=== PATIENT | male | born 1970 | race Caucasian/White ===

== ENCOUNTER → 2019-07-01 15:24 | Outpatient (CLI) | payer BC, SELFPAY ==
--- NOTE | ~2019-07-01 | CT_ITS ---
EXAMINATION: CT abdomen pelvis wo/w con EXAM DATE: 07/01/2019 16:16 INDICATION: Right lower quadrant pain for one month. TECHNIQUE: Spiral CT of the abdomen and pelvis was performed without and then with intravenous inject ion of 100 mL Omnipaque 350. Axial, coronal and sagittal images were reviewed. The dose-length pro duct (DLP) for this examination was 1608.91 mGy-cm. The exposure was tailored according to patient s ize (auto mA exposure control), and iterative reconstruction (ASIR) was used as additional dose reduc tion technique. There is no prior study for comparison. FINDINGS: The liver, spleen, adrenal glands and pancreas are unremarkable. Gallbladder is unremarkab le. No biliary obstruction. Portal and splenic veins are patent. There is no nephrolithiasis. Kidne ys enhance symmetrically. There is no hydronephrosis. The prostate is unremarkable. The bladder i s unremarkable. Scattered pericecal lymph nodes, measuring up to 1.1 x 1.6 cm. Differential diagnosi s includes mesenteric adenitis, metastatic disease, mesenteric carcinoid. No definite cecal mass iden tified but small masses could be missed by CT. The appendix is normal. The stomach and small bowel are unremarkable. There is expected amount of colonic stool. No free i ntraperitoneal gas. The heart is normal in size. There are no pericardial or pleural effusions. S cattered lung granulomas. There are no osteoblastic or osteolytic lesions identified. IMPRESSION: Mild pericecal lymphadenopathy, differential diagnosis including mesenteric adenitis, met astatic disease, carcinoid tumor. Clinical correlation. Consider one-month follow-up and if this pers ists further workup. Reviewed, dictated and finalized at location B. 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 Clinical correlation. C onsider one-month follow-up and if this persists further workup.
[2019-07-01 15:57] LABS: Blood Urea Nitrogen 21 mg/dL (8-26); Estimated Glomerular Filt Rate > 60
== END ==
PROVIDERS: PCP Family Medicine; Visit Provider Family Medicine
DX: R59.1 Generalized enlarged lymph nodes (principal)
CPT/HCPCS: 74178; Q9967

== ENCOUNTER → 2019-08-01 15:49 | Outpatient (CLI) | payer BC, SELFPAY ==
--- NOTE | ~2019-08-01 | CT_ITS ---
EXAMINATION: CT abdomen pelvis w con DATE: 08/01/2019 16:18 INDICATION: Right lower quadrant abdominal pain. TECHNIQUE: Computed tomography (CT) of the abdomen and pelvis was performed with 100 mm Omnipaque 350 intravenous contrast. Automated exposure control and iterative reconstruction technique were employe d. The dose-length product was 873.55 mGy-cm. COMPARISON: CT abdomen and pelvis 07/01/2019 FINDINGS: Calcified pulmonary nodules and calcified hilar and mediastinal lymph nodes are consistent with old granulomatous disease. No pleural effusion. The heart size is normal. No pericardial effusio n. The liver, gallbladder, spleen, pancreas, adrenal glands, and left kidney are normal. There is a 5 mm cyst in right kidney. The appendix measures 8 mm in diameter without change. No wall thickening o r surrounding fat stranding to suggest inflammation. Again seen is an increased number of normal-size d ileocolic lymph nodes, likely reactive. There are no pathologically enlarged lymph nodes. There is no free intraperitoneal fluid. There is mild thoracolumbar spondylosis. IMPRESSION: 1. Mild ileocolic lymphadenopathy, likely reactive. Reviewed, dictated and finalized at location A.
== END ==
PROVIDERS: PCP Family Medicine; Visit Provider Surgery
DX: R10.31 Right lower quadrant pain (principal); R59.0 Localized enlarged lymph nodes
CPT/HCPCS: 74177; Q9967

== ENCOUNTER 2020-11-17 01:55 | Emergency (ER) | payer BC, SELFPAY ==
--- NOTE | ~2020-11-17 | XR_ITS ---
EXAMINATION: XR chest 2V DATE: 11/17/2020 02:54 INDICATION: Palpitations. TECHNIQUE: Frontal and lateral views of the chest were obtained. COMPARISON: Chest 2 views 07/05/2007, CT abdomen and pelvis 08/01/2019 FINDINGS: Calcified pulmonary nodules and calcified hilar and mediastinal lymph nodes are consistent with old granulomatous disease. No pleural effusion or pneumothorax. The heart size is normal. IMPRESSION: 1. No acute cardiopulmonary disease. Reviewed, dictated and finalized at location A.
[2020-11-17 01:59] VITALS: BP 150/96; PULSE 88; RESP 20; TEMP 36.8; O2SAT 99
[2020-11-17 02:05] VITALS: BP 151/92; PULSE 78; RESP 16; O2SAT 98
--- NOTE | 2020-11-17 02:12 | ECG_ITS ---
Measurements Intervals [place] Rate: 80 P: 29 VT: 158 QRS: -10 QRSD: 121 T: 29 QT: 353 QTc: 409 Interpretive Statements SINUS RHYTHM INCOMPLETE RIGHT BUNDLE BRANCH BLOCK MINIMAL Q WAVES- INFERIOR LEADS BORDERLINE ECG Electronically Signed On 11-17-2020 6:03:05 CDT by Mike Banks D.O.
[2020-11-17 03:32] LABS: Eosinophils Absolute Auto 0.1 K/mm3 (0-0.3); Eosinophils Percent Auto 2.1 % (0-4.4); Hematocrit 47.4 % (42.0-52.0); Hemoglobin 15.9 g/dL (14.0-18.0); Immature Granulocyte Absolute 0.03 K/mm3 (0.00-0.031); Immature Granulocyte Percent A 0.6 % (0-0.5); Lymphocytes Absolute Auto 0.91 K/mm3 (0.9-3.2); Lymphocytes Percent Auto 18.9 % (18.3-44.2); Mean Corpuscular HGB Conc 33.5 g/dl (32-36); Mean Corpuscular Hemoglobin 29.2 pg (26-34); Mean Corpuscular Volume 87.1 fl (80-100); Monocytes Absolute Auto 0.4 K/mm3 (0.1-0.6); Monocytes Percent Auto 9.1 % (2.6-8.5); Neutrophils Absolute Auto 3.3 K/mm3 (1.3-6.7); Neutrophils Percent Auto 69.3 % (45.5-73.1); Platelet Count Result 181 k/mm3 (150-375); Red Blood Count 5.44 M/mm3 (4.6-6.20); Red Cell Distribution Width 12.5 % (11.5-14.5); White Blood Count 4.8 K/mm3 (4.5-10.0)
[2020-11-17 03:42] LABS: INR 0.9
[2020-11-17 03:44] LABS: Anion Gap 8 mmol/L (8-16); Blood Urea Nitrogen 16 mg/dL (9-20); Calcium 9.4 mg/dL (8.4-10.2); Carbon Dioxide 28 mmol/L (22-30); Chloride 104 mmol/L (98-107); Estimated CRCL calculation 88 ml/min; Estimated Glomerular Filt Rate > 60; Glucose 106 mg/dL (75-110); Potassium 4.1 mmol/L (3.4-5.0); Sodium 140 mmol/L (137-145)
[2020-11-17 03:45] LABS: Partial Thromboplastin Time 28.5 SECONDS (22.3-36.8)
[2020-11-17 03:55] LABS: NT Pro B Type Natriuretic Pept 25 pg/mL (5-100); Troponin I < 0.012 ng/mL (0.000-0.034)
--- NOTE | 2020-11-17 04:05 | ED.ARRPALP ---
HPI - Arrhythmia/Palpitations General Chief Complaint: Arrhythmia/Palpitations Stated Complaint: Dizzy, high HR Time Seen by Provider: 11/17/20 03:56 Source: patient and RN notes reviewed Mode of arrival: ambulatory Limitations: no limitations History of Present Illness HPI narrative: This is a 50 year old male who presents for evaluation of palpitations. He states on Monday night he woke up after sleeping a couple hours with a sensation of palpitations. He reports tonight he was having trouble getting comfort and falling asleep . He also states he was feeling anxious as well. His states they are dealing with alot of stress. He states he was slightly lightheaded when he arrived to ER but he feels fine now. HE denies chest pain, sob, nausea, vomiting, sinus symptoms, numbness, tingling or headache. 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 HEAD: Normocephalic, atraumatic EYES: PERRLA and EOMI, conjunctiva clear without discharge EARS: TM's clear bilaterally without erythema or dullness NOSE: Nares clear, no rhinorrhea or epistaxis THROAT:Mucous membranes moist, Oropharynx normal without erythema, exudate, peritonsillar swelling or fluctuance NECK: Supple, without lymphadenopathy or mass RESPIRATORY: No respiratory distress, Airway patent, Respirations non-labored, Clear to auscultation without rales, rhonchi or wheeze HEART: Regular rate and rhythm. No murmur heard. Normal peripheral pulses. ABDOMEN: Soft, nontender, nondistended, normal active bowel sounds. No masses. No rebound or guarding, No organomegaly. EXTREMITIES: No edema, normal strength with full range of motion. SKIN: Warm, dry, normal color without rash NEURO: Alert and oriented x3. CN 2-12 grossly intact. No focal deficits. PSYCH: Normal mood and affect. Course Reevaluation(s) Reevaluation #1: I Discussed with patient that labs are unremarkable. He will follow up with PCP if symptoms continue and he will get evaluation for palpitations. Not orthostatic. No chest pain or sob. No arrhythmia at this time Date: 11/17/20 Time: 04:17 Vital Signs Vital signs: Vital Signs Temperature 98.3 F 11/17/20 01:59 Pulse Rate 88 11/17/20 01:59 Respiratory Rate 20 11/17/20 01:59 Blood Pressure 150/96 H 11/17/20 01:59 Pulse Oximetry 99 11/17/20 01:59 Temperature 98.3 F 11/17/20 01:59 Pulse Rate 74 11/17/20 04:32 Respiratory Rate 16 11/17/20 02:05 Blood Pressure 131/87 11/17/20 04:32 Pulse Oximetry 96 11/17/20 04:32 MDM - Arrhythmia/Palpitations Lab Data Attestation: I reviewed the patient's lab results. Result diagrams: 11/17/20 03:20 11/17/20 0
[2020-11-17 04:07] VITALS: BP 131/85; PULSE 64
[2020-11-17 04:09] VITALS: BP 135/91; PULSE 68
[2020-11-17 04:10] VITALS: BP 132/88; PULSE 75
[2020-11-17 04:32] VITALS: BP 131/87; PULSE 74; O2SAT 96
== END 2020-11-17 04:32 | disposition home or self-care (01) ==
PROVIDERS: Emergency Provider General Practice; PCP Family Medicine
DX: R00.2 Palpitations (principal)
CPT/HCPCS: 36415; 71046; 80048; 83735; 83880; 84484; 85025; 85610; 85730; 93005; 99284

== ENCOUNTER → 2023-04-12 15:32 | Outpatient (CLI) | payer BC, SELFPAY ==
--- NOTE | ~2023-04-12 | XR_ITS ---
XR cervical spine 4-5V INDICATION: Neck pain TECHNIQUE: 5 views of the cervical spine. FINDINGS: No prior studies for comparison. The cervical spine is visualized to the cervicothoracic junction. There is no prevertebral soft tiss ue swelling, listhesis, or loss of vertebral body height. Intervertebral disc spaces are normal. Th e osseous central canal is patent. No displaced cervical spine fractures are identified. No signific ant alteration of alignment with flexion/extension. IMPRESSION: 1. No acute osseous abnormality of the cervical spine. Reviewed, dictated and finalized at location B. IFIED PROSTHETIST
== END ==
PROVIDERS: PCP Family Medicine; Visit Provider Family Medicine
DX: M54.2 Cervicalgia (principal)
CPT/HCPCS: 72050

== ENCOUNTER 2023-06-21 15:15 | Outpatient (RCR) | payer BC, SELFPAY ==
--- NOTE | 2023-05-03 15:07 | PTOPEVAL1 ---
Assessment and note entered by Victorino Escobar Evaluation Information Assessment Status Evaluation Diagnosis cervicalgia Onset 02/01/23 Subjective Information Pt. reports that he developed neck pain about 3 months ago. He describes pain in the center of the neck. 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 He states that he also notices the pain in the evening with sitting. He reports that he will get occasional pain with attempting to turn his head to the right. He reports that he can have pain at night and can disrupt his sleep. He reports that he will take occasional Asprin for pain. He states that he is able to complete all IADL despite pain. he has had xray, but no significant findings. He reports that his goal is to decrease his pain. Reported Pain Level Pain Score 1: Self Report Assessment PT Clinical Summary Pt. is a 52 year old male who enters the clinic with neck pain. He presents with defictis in postural awareness, pain and deficits in cervical spine ROM on this date. Continued skilled PT is indicated in order to improve these areas to allow the pt. to achieve improved comfort with all IADL 's. Plan of Care Interventions Electrical Stimulation,Hot Pack/Cold Pack,Manual Therapy,Neuro Re-education,Therapeutic Activities, Therapeutic Exercise Treatment Frequency and 1x/week x 4 visits Duration These treatments will address the objective and functional deficits as defined above. The patient will be advanced safely and appropriately in order for the patient to progress towards his/her prior level of function. Additional exercises will be introduced and as well as a comprehensive home exercise program upon discharge, if needed, ?to ensure carryover of functional gains achieved in the clinic. This treatment plan has been reviewed and agreement upon by the patient.
--- NOTE | 2023-05-03 15:07 | OPREHPOC ---
Outpatient Therapy Plan of Care This is a Multidisciplinary Plan of Care that may contain components documented by all disciplines (PT, OT, and ST.) PT Problem 1 PT Problem #1 Knowledge Deficit PT Goal 1 Goal Pt. will be independent with a HEP addressing postural awareness and mobility. Target Visit 2 PT Problem 2 PT Problem #2 Pain PT Goal 1 Goal Pt. will report pain levels at 1/10 at worst in a 2 week period. Target Visit 4 PT Problem 3 PT Problem #3 Impaired Range of Motion PT Goal 1 Goal Pt. will demonstrate 75 degrees or greater of bilateral c-spine rotation active ROM. Target Visit 4 PT Problem 4 PT Problem #4 Impaired Functional Mobil PT Goal 1 Goal Pt. will present with 10% improvement or more with the NDI. Target Visit 4
--- NOTE | 2023-05-31 12:29 | PCPTNOTE ---
Queenie Mckenna cancelled his scheduled appointment for this date due to illness. Victorino Escobar, MPT
--- NOTE | 2023-06-21 15:41 | PTOPDC ---
Assessment and note entered by Mattie Oliva, PT Discharge Information Assessment Status Discharge Diagnosis cervicalgia Onset 02/01/23 Subjective Information am 99% better, have been using a traction- thing he found on [employer]; is doing sitting or lying down ; have been careful at work and not looking down at the morales when operating it and when looking at phone, hold it up more; been doing the exercises Reported Pain Level Pain Score Self Report Additional Pain Score Comments pain range in the past week, 0-1/10; feel a little something in neck about 2x/week, but last few seconds only; decrease pain: cervical traction with pump up device he purchased discussed the home unit and doing in supine position with head supported and good alignment; or reclined in chair with supported head; reinforced use of heat/ ice PRN if neck pain increases Assessment PT Clinical Summary Karey has received 4 PT sessions, from May 03 to today. Compared to the initial eval: pain has decreased at worst from 4 to 1/10; active cervical rotation to R and L range increased and no longer painful; improved posture of neck and shoulders with correction of his work and home positions for cervical stability; indep with HEP and education completed. Self assessment Neck Disability index from 14% to 0% limitation in activity level. The goals were achieved. Discharge PT services, to continue with his home exercises. Plan of Care PT Services Indicated No
== END 2023-06-22 15:38 | disposition home or self-care (01) ==
LOC: ANHPT 15:15
PROVIDERS: PCP Family Medicine; Visit Provider Family Medicine
DX: M54.2 Cervicalgia (principal)
CPT/HCPCS: 97012; 97014; 97110; 97140; 97161; 97530; G0283

== ENCOUNTER 2024-07-10 14:52 | Emergency (ER) | payer BC, SELFPAY ==
--- NOTE | ~2024-07-10 | XR_ITS ---
EXAMINATION: XR chest 2V DATE: 07/10/2024 15:40 INDICATION: Chest pain. TECHNIQUE: Frontal and lateral views of the chest were obtained. COMPARISON: Chest 2 views 11/17/2020, CT abdomen and pelvis 08/01/2019 FINDINGS: Calcified pulmonary nodules and calcified hilar and mediastinal lymph nodes are consistent with old granulomatous disease. No pleural effusion or pneumothorax. The heart size is normal. IMPRESSION: 1. No acute cardiopulmonary disease. Reviewed, dictated and finalized at location A. ORICAL MANUSCRIPTS CURATOR
--- NOTE | 2024-07-10 14:54 | ECG_ITS ---
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
[2024-07-10 14:56] VITALS: BP 147/87; PULSE 92; RESP 16; TEMP 37.1; O2SAT 99
[2024-07-10 15:07] VITALS: BP 153/99; PULSE 88; RESP 20; TEMP 36.8; O2SAT 97
[2024-07-10] MEDS: ASPIRIN 81 MG CHEWABLE TABLET 324 MG PO (15:15)
[2024-07-10 15:33] LABS: Basophils Percent Auto 0.1 % (0.2-1.2); Eosinophils Absolute Auto 0.1 K/mm3 (0-0.3); Eosinophils Percent Auto 1.6 % (0-4.4); Hematocrit 45.8 % (42.0-52.0); Immature Granulocyte Absolute 0.02 K/mm3 (0.00-0.031); Immature Granulocyte Percent A 0.2 % (0-0.5); Lymphocytes Absolute Auto 0.92 K/mm3 (0.9-3.2); Lymphocytes Percent Auto 11.4 % (18.3-44.2); Mean Corpuscular HGB Conc 34.9 g/dl (32-36); Mean Corpuscular Hemoglobin 30.1 pg (26-34); Mean Corpuscular Volume 86.3 fl (80-100); Mean Platelet Volume 9.1 fl (7.4-10.4); Monocytes Absolute Auto 0.6 K/mm3 (0.1-0.6); Monocytes Percent Auto 6.8 % (2.6-8.5); Neutrophils Absolute Auto 6.5 K/mm3 (1.3-6.7); Neutrophils Percent Auto 79.9 % (45.5-73.1); Platelet Count Result 211 k/mm3 (150-375); Red Blood Count 5.31 M/mm3 (4.6-6.20); Red Cell Distribution Width 12.5 % (11.5-14.5); White Blood Count 8.1 K/mm3 (4.5-10.0)
[2024-07-10 15:43] LABS: Alanine Aminotransferase 22 U/L (6-50); Albumin Level 4.3 g/dL (3.5-5.1); Alkaline Phosphatase 81 U/L (38-126); Anion Gap 11 mmol/L (4-12); Aspartate Amino Transferase 24 U/L (17-59); Bilirubin,Total 1.4 mg/dL (0.2-1.3); Blood Urea Nitrogen 21 mg/dL (9-20); Calcium 9.3 mg/dL (8.4-10.2); Carbon Dioxide 27 mmol/L (22-30); Chloride 104 mmol/L (98-107); Estimated CRCL calculation 79 ml/min; Estimated Glomerular Filt Rate > 60; Glucose 102 mg/dL (65-110); Lipase 64 U/L (23-300); Potassium 3.9 mmol/L (3.4-5.0); Sodium 142 mmol/L (137-145)
[2024-07-10 15:44] LABS: INR 0.9; Prothrombin Time 12.3 Seconds (11.1-14.7)
[2024-07-10 15:45] LABS: Partial Thromboplastin Time 28.1 Seconds (22.3-36.8)
[2024-07-10 15:55] LABS: Troponin I < 0.012 ng/mL (0.000-0.034)
[2024-07-10 16:13] VITALS: BP 130/80; PULSE 80; RESP 14; O2SAT 97
--- OUTSIDE RECORDS SUMMARY | 2024-07-10 16:41 | XMS_ITS | Patient Health Summary ---
Author Organization [facility] Address [address] [place] [address] Care Team Providers Care Coremaking Supervisor Name Role Phone Roderick Suh MD Primary Care Provider Note from [facility],non-owned Affiliates and Associated Physician Practices is amultiple site organization consisting of ambulatory clinics and hospital sitesin [place], [place], [place] and [place]. This disclosure is being madepursuant to the Care Everywhere program and may not contain all information available regarding this patient. Last updated 18.[facility] Allergies No known active allergies Medications * Be aware that medications may not be up to date on this document. Alwaysverify current medications with the patient. 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 (FLUZONE; FLULAVAL; FLUARIX; AFLURIA QUADRIVALENT; 6MO+), 0.5 ML (IIV4)(Given 04/07/2019) * PNEUMOCOCCAL PPSV23(Given 02/12/2015) Social History Tobacco Use Types Packs/Day Years Used Date Smoking Tobacco: Never Smokeless Tobacco: Never Tobacco Cessation:Counseling Given: Not Answered Alcohol Use Standard Drinks/Week Comments No 0 (1 standard drink = 0.6 oz pur e alcohol) Social, maybe once a month. PHQ-2 Answer Date Recorded Patient Health Questionnaire-2 Score 0 03/21/2024 Sex and Gender Information Value Date Recorded Sex Assigned at Male 03/15/2021 6:37 PM AUTO BODY SHOP MANAGER Gender Identity Male 03/15/2021 6:37 PM AUT[employer] B[employer]OP MANAGER Sexual Orientation Not on file Last Filed Vital Signs Vital Sign Reading Time Taken Comments Blood Pressure 129/87 03/21/2024 3:31 PM AUT[employer] BODY SHOP MANAGER Pulse 84 03/21/2024 3:31 PM AUTO BODY SHOP MANAGER Temperature 36.4 C (97.5 F) 03/21/2024 3:31 PM AUTO BODY SHOP MANAGER Respiratory Rate 20 04/03/2019 3:11 PM AUTO BODY SHOP MANAGER Oxygen Saturation 96% 03/21/2024 3:31 PM AUTO BODY SHOP MANAGER Inhaled Oxygen Concentration - - Weight 100.7 kg (222 lb) 03/21/2024 3:31 PM AUTO BODY SHOP MANAGER Height 185.4 cm (6' 1 ) 03/21/2024 3:31 PM AUTO BODY SHOP MANAGER Body Mass Index 29.29 03/21/2024 3:31 PM AUTO BODY SHOP MANAGER Procedures * COMPLETE PFT W/WO BRONCHODILATOR(Performed 03/21/2024) Performed for Hypogammaglobulinemia (HCC), CVID (common variable immunodeficiency) (HCC) * CBC W AUTO DIFFERENTIAL(Performed 03/14/2024) * COMPREHENSIVE METABOLIC PANEL(Performed 03/14/2024) * IMMUNOGLOBULINS A/E/G/M QUANT(Performed 03/14/2024) * COMPLETE PFT W/WO BRONCHODILATOR(Performed 03/20/2023) * IMMUNOGLOBULINS IGG/IGM/IGA PANEL(Performed 02/15/2023) * CBC W AUTO DIFFERENTIAL(Performed 02/15/2023) * COMPREHENSIVE METABOLIC PANEL(Performed 02/15/2023) * IGM BLOOD(Performed 04/12/2022) Performed for CVID (common variable immunodeficiency) ([facility]) * IGA BLOOD(Performed 04/12/2022) Performed for CVID (common variable immunodeficiency) ([facility]) * IGG BLOOD(Performed 04/12/2022) Performed for CVID (common variable immunodeficiency) ([facility]) * CBC W AUTO DIFFERENTIAL(Performed 03/19/2022) Performed for Hypogammaglobulinemia ([facility]) * IGG BLOOD(Performed 03/19/2022) Performed for Hypogammaglobulinemia ([facility]) * PFT-LAB(Performed 07/27/2021) Performed for CVID (common variable immunodeficiency) ([facility]) * COMPREHENSIVE METABOLIC PANEL(Performed 04/05/2021) Performed for CVID (common variable immunodeficiency) ([facility]) * IMMUNOGLOBULINS IGG/IGM/IGA PANEL(Performed 04/05/2021) Performed for CVID (common variable immunodeficiency) ([facility]) * CBC W AUTO DIFFERENTIAL(Performed 04/05/2021) Performed for CVID (common variable immunodeficiency) ([facility]) * CT ENTEROGRAPHY(Performed 03/27/2020) Performed for Right lower quadrant abdominal pain * CREATININE - POCT INTERFACED(Performed 03/27/2020) * US ABDOMEN LIMITED(Performed 03/27/2020) Performed for RUQ pain * FLOW CYTOMETRY ARLET MEDIUM PANEL(Performed 03/12/2020) Performed for CVID (common variable immunodeficiency) ([facility]) * CBC W AUTO DIFFERENTIAL(Performed 03/12/2020) Performed for CVID (common variable immunodeficiency) ([facility]) * CD4/CD8 ABSOLUTE + RATIO PANEL(Performed 02/14/2020) Performed for Immunodeficiency with predominantly antibody defects ([facility]) * IMMUNOGLOBULINS IGG/IGM/IGA PANEL(Performed 02/14/2020) Performed for Immunodeficiency with predominantly antibody defects ([facility]) * COMPREHENSIVE METABOLIC PANEL(Performed 02/14/2020) Performed for Immunodeficiency with predominantly antibody defects ([facility]) * CBC W AUTO DIFFERENTIAL(Performed 02/14/2020) Performed for Immunodeficiency with predominantly antibody defects (HCC) * CD4/CD8 ABSOLUTE + RATIO PANEL(Performed 08/29/2019) * CD4/CD8 ABSOLUTE + RATIO PANEL(Performed 03/12/2019) * IMMUNOGLOBULINS IGG/IGM/IGA PANEL(Performed 03/12/2019) * CD4/CD8 ABSOLUTE + RATIO PANEL(Performed 03/23/2018) Performed for Hypogammaglobulinemia (HCC) * COMPREHENSIVE METABOLIC PANEL(Performed 03/23/2018) Performed for Hypogammaglobulinemia (HCC) * IMMUNOGLOBULINS IGG/IGM/IGA PANEL(Performed 03/23/2018) Performed for Hypogammaglobulinemia (HCC) * CBC W AUTO DIFFERENTIAL(Performed 03/23/2018) Performed for Hypogammaglobulinemia (HCC) * IGM BLOOD(Performed 08/14/2017) * IGG BLOOD(Performed 08/14/2017) * IGA BLOOD(Performed 08/14/2017) * LYMPHOCYTE SUBSET PANEL 3(Performed 08/14/2017) * IGG SUBCLASSES PANEL(Performed 01/17/2017) * IGA SUBCLASSES(Performed 01/17/2017) * CD4/CD8 + RATIO PANEL BLOOD(Performed 01/17/2017) * IGM BLOOD(Performed 01/17/2017) * COMPREHENSIVE METABOLIC PANEL(Performed 01/17/2017) * CBC W AUTO DIFFERENTIAL(Performed 01/17/2017) * IMMUNOGLOBULINS IGG/IGM/IGA PANEL(Performed 08/08/2016) * CD4/CD8 + RATIO PANEL BLOOD(Performed 08/08/2016) * CBC W AUTO DIFFERENTIAL(Performed 08/08/2016) * PFT-LAB(Performed 03/04/2016) * DIPHTHERIA + TETANUS AB PANEL(Performed 02/12/2016) * COMPREHENSIVE METABOLIC PANEL(Performed 02/12/2016) * CBC W AUTO DIFFERENTIAL(Performed 02/12/2016) * IGM BLOOD(Performed 02/12/2016) * IGG BLOOD(Performed 02/12/2016) * IGA BLOOD(Performed 02/12/2016) * CD4/CD8 + RATIO PANEL BLOOD(Performed 02/12/2016) * CBC W AUTO DIFFERENTIAL(Performed 08/25/2015) * IGM BLOOD(Performed 08/25/2015) * IGG BLOOD(Performed 08/25/2015) * IGA BLOOD(Performed 08/25/2015) * STREP PNEUMO AB IGG 23 SEROTYPES PANEL(Performed 03/12/2015) * CBC W AUTO DIFFERENTIAL(Performed 03/12/2015) * COMPREHENSIVE METABOLIC PANEL(Performed 03/12/2015) * CBC W AUTO DIFFERENTIAL(Performed 02/12/2015) * FLOW CYTOMETRY ARLET MEDIUM PANEL(Performed 02/12/2015) * CBC W AUTO DIFFERENTIAL(Performed 02/12/2015) * CBC W AUTO DIFFERENTIAL(Performed 02/12/2015) * IGM BLOOD(Performed 02/12/2015) * IGA BLOOD(Performed 02/12/2015) * IGG SUBCLASSES PANEL(Performed 02/12/2015) Results * Complete PFT w/wo Bronchodilator [facility] [address] PFT Lab (03/21/2024 5:45 PM AUT[employer] BODY SHOP MANAGER) Impressions Gaston Quarles MD - 03/21/2024 5:45 PM AUTO BODY SHOP MANAGER [facility] DEPARTMENT OF PULMONARY, CRITICAL CARE, AND SLEEP MEDICINE PULMONARY FUNCTION TEST Please see technologist's comments mentioned in the report. INTERPRETATION: SPIROMETRY: FVC: normal. FEV1: normal. FEV1/FVC ratio is normal. BRONCHODILATOR RESPONSE: There is no significant response to bronchodilator therapy, however this does not mean the patient would not benefit from bronchodilator therapy. FLOW-VOLUME LOOPS: Inspection of the flow-volume loops shows normal flow-volume loops. LUNG VOLUMES: Lung volumes by body plethysmography show normal total lung volume and normal residual volume. DIFFUSION CAPACITY DLCO: Unadjusted for Hb and COHb is normal. DLCO: Corrected for Hb is normal. AIRWAY RESISTANCE The airway resistance is normal and the specific conductance is increased. ARTERIAL BLOOD GAS ANALYSIS: Not performed. IMPRESSION: 1. Normal spirometry and lung volumes. 2. When corrected for Hgb, DLCO is normal. 3. No significant bronchodilator response, however this does not preclude the use of bronchodilators. 4. Compared with previous study on 03/20/2023, there is increase in FEV1 by 200 ml, no other significant changes otherwise. David Nice MD Pulmonary & Critical Care Fellow Division of Pulmonary, Critical Care, and Sleep Medicine [facility] I have personally reviewed the fellow's interpretation of the test and made any necessary changes when needed. Gaston Quarles MD Metal Drawer of Internal Medicine Division of Pulmonary, Critical Care and Sleep Medicine [facility] Pager: [phone] Andrew Galindo MD RESPIRATORY THERAPY ORDERABLES * (ABNORMAL) IMMUNOGLOBULINS A/E/G/M QUANT (03/14/2024 6:11 AM AUTO BODY SHOP MANAGER) Pathologist [facility] IgA <5(L) 47 - 310 mg/dL [facility] Comment: Verified by repeat analysis. IgE <2 <QS=479 kU/L [facility] IgG 436(L) 600 - 1640 mg/dL [facility] IgM 38(L) 50 - 300 mg/dL [facility] Comment: Test Performed at: [facility] [address] [place] [address] JUN CARPENTER MD 03/14/2024 6:11 AM AUTO BODY SHOP MANAGER 03/14/2024 6:12 AM AUTO BODY SHOP MANAGER Andrew Galindo MD LAB - SEROLOGY ORDER SJ [facility] [address] [place] [address] * CBC WITH DIFFERENTIAL (03/14/2024 6:11 AM AUTO BODY SHOP MANAGER) Only the most recent of15 resultswithin the time period is included. Pathologist [facility] White Blood Cell Count 4.8 3.8 - 10.8 Thousand/u L [facility] RBC 5.58 4.20 - 5.80 Million/uL [facility] Hemoglobin 16.3 13.2 - 17.1 g/dL [facility] Hematocrit 48.8 38.5 - 50.0 % [facility] MCV 87.5 80.0 - 100.0 fL [facility] MCH 29.2 27.0 - 33.0 pg [facility] MCHC 33.4 32.0 - 36.0 g/dL [facility] Comment: For adults, a slight decrease in the calculated MCHC value (in the range of 30 to 32 g/dL) is most likely not clinically significant; however, it should be interpreted with caution in correlation with other red cell parameters and the patient's clinical condition. RDW 13.1 11.0 - 15.0 % [facility] Platelet Count 217 140 - 400 Thousand/u L [facility] MPV 9.8 7.5 - 12.5 fL [facility] Neutrophil Absolute 3432 1500 - 7800 cells/uL [facility] Lymphocytes Absolute 859 850 - 3900 cells/uL [facility] Absolute Monocytes 398 200 - 950 cells/uL [facility] Eosinophils Absolute 110 15 - 500 cells/uL [facility] Basophils Absolute 0 0 - 200 cells/uL [facility] Granulocytes % 71.5 % [facility] Lymphocytes % 17.9 % [facility] Monocytes % 8.3 % [facility] Eosinophils % 2.3 % [facility] Basophils % 0.0 % [facility] Comment: REPORT COMMENT: FASTING:YES Test Performed at: [facility] [place] [address] JUN CARPENTER MD 03/14/2024 6:11 AM AUTO BODY SHOP MANAGER 03/14/2024 6:12 AM AUTO BODY SHOP MANAGER Andrew Galindo MD LAB - HEMATOLOGY ORD ERABLES [facility] [address] [place] [address] * (ABNORMAL) COMPREHENSIVE METABOLIC PANEL (03/14/2024 6:11 AM AUTO BODY SHOP MANAGER) Only the most recent of8 resultswithin the time period is included. Glucose 100(H) 65 - 99 mg/dL [facility] Comment: Fasting reference interval For someone without known diabetes, a glucose value between 100 and 125 mg/dL is consistent with prediabetes and should be confirmed with a follow-up test. BUN 16 7 - 25 mg/dL [facility] Creatinine 0.95 0.70 - 1.30 mg/dL [facility] eGFR by Cystatin C 97 > OR = 60 mL/min/1. 73m2 [facility] BUN/Creatinine Ratio SEE NOTE: 6 - 22 (calc) [facility] Comment: Not Reported: BUN and Creatinine are within reference range. Sodium 141 135 - 146 mmol/L [facility] Potassium 4.3 3.5 - 5.3 mmol/L [facility] Chloride 107 98 - 110 mmol/L [facility] CO2 27 20 - 32 mmol/L [facility] Calcium 9.4 8.6 - 10.3 mg/dL [facility] Protein Total 5.8(L) 6.1 - 8.1 g/dL [facility] Albumin 4.4 3.6 - 5.1 g/dL [facility] Globulin Total 1.4(L) 1.9 - 3.7 g/dL (calc) [facility] Albumin/Globulin Ratio 3.1(H) 1.0 - 2.5 (calc) [facility] Bilirubin Total 1.4(H) 0.2 - 1.2 mg/dL [facility] Alkaline Phosphatase 81 35 - 144 U/L [facility] AST 15 10 - 35 U/L [facility] ALT 19 9 - 46 U/L [facility] Comment: Test Performed at: [place] [address] JUN CARPENTER MD 03/14/2024 6:11 AM AUTO BODY SHOP MANAGER 03/14/2024 6:12 AM AUTO BODY SHOP MANAGER Andrew Galindo MD LAB - CHEMISTRY XUAN RACHIDCIERA [facility] Organization Address City/State/ZIP Co de Phone Number [facility] [phone] [place] [address] * COMPLETE PFT W/WO BRONCHODILATOR (03/20/2023 3:42 PM AUTO BODY SHOP MANAGER) Impressions Slime George MD - 03/20/2023 3:42 PM AUTO BODY SHOP MANAGER [facility] DEPARTMENT OF PULMONARY, CRITICAL CARE, AND SLEEP MEDICINE PULMONARY FUNCTION TEST Please see technologist's comments mentioned in the report. INTERPRETATION: SPIROMETRY: FVC: normal. FEV1: normal. FEV1/FVC ratio is normal. BRONCHODILATOR RESPONSE: There is no significant response to bronchodilator therapy, however this does not mean the patient would not benefit from bronchodilator therapy. FLOW-VOLUME LOOPS: Inspection of the flow-volume loops shows normal flow-volume loops. LUNG VOLUMES: Lung volumes by body plethysmography show normal total lung volume and normal residual volume. DIFFUSION CAPACITY DLCO: Unadjusted for Hb and COHb is normal. AIRWAY RESISTANCE The airway resistance is normal and the specific conductance is normal. ARTERIAL BLOOD GAS ANALYSIS: Not performed. IMPRESSION: 1. Normal pulmonary function test. 2. Uncorrected DLCO is normal. 3. Flattening of inhalation loop- possible variable extrathoracic obstruction like VCD can not be ruled out. 4. No significant bronchodilator response, however this does not preclude the use of bronchodilators. 5. Compared with previous study on 07/27/2021, FEV1 decreased 410 mL, FVC decreased 360 mL, TLC decreased 410 mL, and DLCO decreased 3.48 mL/min/mmHg. Esteban Felix MD Pulmonary & Critical Care Fellow Division of Pulmonary, Critical Care, and Sleep Medicine [facility] I have personally reviewed pulmonary function test data and finding. I concur with fellow's note. Slime George MD Narrative Slime George MD - 03/20/2023 3:42 PM AUT[employer] BODY SHOP MANAGER Esteban Felix MD 03/20/2023 3:46 PM Andrew Galindo MD RESPIRATORY THERAPY ORDERABLES * (ABNORMAL) IMMUNOGLOBULINS IGG/IGM/IGA PANEL (02/15/2023 2:13 PM CDT) Only the most recent of6 resultswithin the time period is included. Pathologist [facility] IgA <5(L) 47 - 310 mg/dL [facility] IgG 397(L) 600 - 1640 mg/dL [facility] IgM 37(L) 50 - 300 mg/dL [facility] Comment: REPORT COMMENT: FASTING:NO Test Performed at: [place] [address] LORRIE YAÑEZ,PHD 02/15/2023 2:13 PM CDT 02/15/2023 2:14 PM CDT Andrew Galindo MD LAB - CHEMISTRY XUAN CANDELARIO Performing Organization Address [facility] Co de Phone Number [facility] [phone] [place] [phone] * (ABNORMAL) IGM BLOOD (04/12/2022 1:57 PM AUTO BODY SHOP MANAGER) Only the most recent of6 resultswithin the time period is included. [facility] IgM 36(L) 50 - 300 mg/dL [facility] Comment: Test Performed at: [place] [address] MAGDA STEVENSON DO,MPH Blood BLOOD SPECIMEN / Unknown 04/12/2022 1:57 PM AUTO BODY SHOP MANAGER 04/12/2022 1:58 PM AUTO BODY SHOP MANAGER Andrew Galindo MD LAB - CHEMISTRY XUAN CANDELARIO Performing Organization Address [facility] Co de Phone Number [facility] [phone] [place] [phone] * (ABNORMAL) IGG BLOOD (04/12/2022 1:57 PM AUTO BODY SHOP MANAGER) Only the most recent of5 resultswithin the time period is included. Pathologist [facility] IgG 386(L) 600 - 1640 mg/dL [facility] Comment: Test Performed at: [facility] [place] [address] MAGDA STEVENSON DO,MPH Blood BLOOD SPECIMEN / Unknown 04/12/2022 1:57 PM AUTO BODY SHOP MANAGER 04/12/2022 1:58 PM AUTO BODY SHOP MANAGER Andrew Galindo MD LAB - CHEMISTRY XUAN CANDELARIO Performing Organization Address [facility] Co de Phone Number [facility] [address] [place] [address] * (ABNORMAL) IGA BLOOD (04/12/2022 1:57 PM AUTO BODY SHOP MANAGER) Only the most recent of5 resultswithin the time period is included. IgA 5(L) 47 - 310 mg/dL [facility] Comment: Test Performed at: [facility] [address] [place] [address] MAGDA STEVENSON DO,MPH Blood BLOOD SPECIMEN / Unknown 04/12/2022 1:57 PM AUTO BODY SHOP MANAGER 04/12/2022 1:58 PM AUTO BODY SHOP MANAGER Andrew Galindo MD LAB - CHEMISTRY XUAN CANDELARIO Performing Organization Address [facility] Co de Phone Number [facility] [phone] [place] [address] * Complete PFT [facility] [address] [address] PFT Lab (07/27/2021 3:28 PM CDT) Impressions Ken Boland MD - 07/27/2021 3:28 PM CDT [facility] DEPARTMENT OF PULMONARY, CRITICAL CARE, AND SLEEP MEDICINE PULMONARY FUNCTION TEST Please see technologist's comments mentioned in the report. INTERPRETATION: SPIROMETRY: FVC: normal FEV1: normal FEV1/FVC ratio is normal BRONCHODILATOR RESPONSE: There is no significant response to bronchodilator therapy however does not preclude from bronchodilator therapy if clinically indicated otherwise FLOW-VOLUME LOOPS: Flattening of the inspiratory loop LUNG VOLUMES: Lung volumes by body plethysmography show normal total lung volume and normal residual volume DLCO: Unadjusted for Hb and COHb is normal DLCO: Corrected for Hb and COHb is: not performed. AIRWAY RESISTANCE: The airway resistance is normal and the specific conductance is normal ARTERIAL BLOOD GAS ANALYSIS: not performed IMPRESSION: 1. Normal spirometry and lung volumes 2. Flattening of the inspiratory loop which could represent variable extrathoracic airway obstruction. Recommend further clinical evaluation 3. No significant bronchodilator response, however this does not preclude the use of bronchodilators 4. Compared with previous study on 03/04/16 there is a significant decrease in FVC by 430 cc, and a decrease in DLCO by 3.18 mL/min/mmHg. Ber Hood DO Pulmonary & Critical Care Fellow Division of Pulmonary, Critical Care and Sleep Medicine [facility] I have personally reviewed and agree with the fellow's interpretation. Ken Boland MD Narrative Ken Boland MD - 07/27/2021 3:28 PM CDT Bre Hood DO 07/27/2021 4:02 PM Andrew Galindo MD RESPIRATORY THERAPY ORDERABLES * CT ENTEROGRAPHY (03/27/2020 10:42 AM AUTO BODY SHOP MANAGER) Anatomical Region Laterality Modality Abdomen, Pelvis Computed Tomogra phy 03/27/2020 10:3 0 AM AUTO BODY SHOP MANAGER Impressions 03/27/2020 11:07 AM AUTO BODY SHOP MANAGER Impression: 1. No acute process identified in the abdomen or pelvis. Mildly prominent ileocecal lymph nodes and a fluid filled appendix which is not dilated with no wall thickening or periappendiceal stranding are non specific findings, per report, those findings were present on prior CT scans. Comparison to prior outside hospital studies maybe helpful to confirm stability. Report dictated by Filemon Bell DO, MPH (physician president). I, Dr. DOC FAN have personally reviewed and interpreted this examination/study. This report was electronically signed by DOC FAN on 03/27/2020 11:07 AM . Narrative 03/27/2020 11:07 AM AUTO BODY SHOP MANAGER Procedure Information DATE: 03/27/2020 8:53 AM EXAMINATION: Computed tomography (CT) of the abdomen and pelvis with contrast TECHNIQUE: CT of the abdomen and pelvis was performed following the administration of negative enteric contrast and the uneventful administration of 150 mL of Isovue 370 intravenous contrast according to standard protocol. Clinical Information HISTORY: R10.31: Right lower quadrant abdominal pain COMPARISON: None. Findings Lower Chest: Scattered rounded subcentimeter calcifications are seen throughout the bilateral lungs likely sequela of prior granulomatous infection. No focal consolidations are seen. Liver: Normal. Gallbladder and Bile Ducts: Normal. Kidneys: Normal. Adrenals: Normal. Spleen: Normal. Pancreas: Normal. Gastrointestinal: The stomach and visualized loops of large and small bowel are unremarkable. Appendix: The appendix measures 6 mm in diameter and is fluid filled. There is no wall thickening of periappendiceal stranding. Mesentery/Peritoneum: Normal. Retroperitoneum: Normal. Pelvic Structures: Normal. Nodes: There are several prominent lymph nodes seen in the right lower quadrant mesentery adjacent to the ileocecal junction. These appear to maintain their normal reniform shape with the largest measuring approximately 1.1 cm in short axis and 2.0 cm in long axis (series 3 image 88). There is no surrounding fat stranding. Vasculature: Scattered atherosclerotic vasculature changes. Bones: Bone windows demonstrate no suspicious lytic or blastic lesions. The visible osseous structures are intact. Fluid: No ascites and no abnormal focal fluid collections. Soft tissues: Normal. Other findings: None. Procedure Note Doc Fan MD - 03/27/2020 Procedure Information DATE: 03/27/2020 8:53 AM EXAMINATION: Computed tomography (CT) of the abdomen and pelvis with contrast TECHNIQUE: CT of the abdomen and pelvis was performed following the administrationof negative enteric contrast and the uneventful administration of 150 mL of Isovue 370 intravenous contrast according to standard protocol. Clinical Information HISTORY: R10.31: Right lower quadrant abdominal pain COMPARISON: None. Findings Lower Chest: Scattered rounded subcentimeter calcifications are seen throughout the bilateral lungs likely sequela of prior granulomatous infection. Nofocal consolidations are seen. Liver: Normal. Gallbladder and Bile Ducts: Normal. Kidneys: Normal. Adrenals: Normal. Spleen: Normal. Pancreas: Normal. Gastrointestinal: The stomach and visualized loops of large and small bowel areunremarkable. Appendix: The appendix measures 6 mm in diameter and is fluid filled. There is no wall thickening of periappendiceal stranding. Mesentery/Peritoneum: Normal. Retroperitoneum: Normal. Pelvic Structures: Normal. Nodes: There are several prominent lymph nodes seen in the right lower quadrant mesentery adjacent to the ileocecal junction. These appear to maintain their normal reniform shape with the largest measuring approximately 1.1 cm in short axis and 2.0 cm in long axis (series 3 image 88). There isno surrounding fat stranding. Vasculature: Scattered atherosclerotic vasculature changes. Bones: Bone windows demonstrate no suspicious lytic or blastic lesions. The visible osseous structures are intact. Fluid: No ascites and no abnormal focal fluid collections. Soft tissues: Normal. Other findings: None. Impression: 1. No acute process identified in the abdomen or pelvis. Mildlyprominent ileocecal lymph nodes and a fluid filled appendix which is not dilated with no wall thickening or periappendiceal stranding are non specific findings, per report, those findings were present on prior CT scans. Comparison to prior outside hospital studies maybe helpful to confirm stability. Report dictated by Filemon Bell DO, MPH (physician president). I, Dr. DOC FAN have personally reviewed and interpreted this examination/study. This report was electronically signed by DOC FAN on 03/27/202011:07 AM . Kai Pulido MD CT ORD ERABLES * CREATININE - POCT INTERFACED (03/27/2020 10:00 AM AUTO BODY SHOP MANAGER) Creatinine POCT 0.82 0.30 - 1.30 mg/dL 03/27/2020 10:04 AM AUTO BODY SHOP MANAGER [facility] eGFR >60 >60 mL/min/1.7 3 m2 03/27/2020 10:04 AM AUTO BODY SHOP MANAGER [facility] Blood BLOOD SPECIMEN / Unknown 03/27/2020 10:00 AM AUTO BODY SHOP MANAGER 03/27/2020 10:04 AM AUTO BODY SHOP MANAGER Kai Pulido MD LAB - POINT OF CARE ORDERABLES [facility] [address] [address], [facility] [phone] * US ABDOMEN LIMITED (03/27/2020 8:57 AM AUTO BODY SHOP MANAGER) Anatomical Region Laterality Modality Abdomen Ultrasound 03/27/2020 9:04 AM AUTO BODY SHOP MANAGER Impressions 03/27/2020 9:12 AM AUTO BODY SHOP MANAGER IMPRESSION: No acute findings. This report was electronically signed by MO SALAS on 03/27/2020 9:12 AM . Narrative 03/27/2020 9:12 AM AUTO BODY SHOP MANAGER EXAMINATION: US ABDOMEN LIMITED HISTORY: R10.11: RUQ pain COMPARISON: None FINDINGS: The visualized pancreas is within normal limits. The liver parenchyma is homogenous. The common bile duct is normal at 4 mm. The gallbladder is normal size with no stones or wall thickening. The right kidney shows no hydronephrosis. The spleen is normal at 11.9 cm. Procedure Note Mo Salas MD - 03/27/2020 EXAMINATION: US ABDOMEN LIMITED HISTORY: R10.11: RUQ pain COMPARISON: None FINDINGS: The visualized pancreas is within normal limits. The liver parenchyma is homogenous. The common bile duct is normal at 4 mm. The gallbladder is normal size with no stones or wall thickening. The right kidney shows no hydronephrosis. The spleen is normal at 11.9 cm. IMPRESSION: No acute findings. This report was electronically signed by MO SALAS on 03/27/2020 9:12 AM . Kai Pulido MD US ORD ERABLES * FLOW CYTOMETRY [facility] MEDIUM PANEL (03/12/2020 8:50 AM AUTO BODY SHOP MANAGER) Only the most recent of2 resultswithin the time period is included. Reason for test CVID (common variable immunodeficiency) 279.06 03/12/2020 4:24 PM [facility] Client Specimen ID # [id number] 03/12/2020 4:24 PM [facility] Number of Markers 9 03/12/2020 4:24 PM [facility] Flow Cytometry Results Differential Result Comment WBC Count /uL 5,300 % Lymphocytes 24 Lymphocyte Count u/L 1,272 03/12/2020 4:24 PM [facility] Flow Cytometry Results (Continued) Cell Region A: Lymphocytes Dual Labeled Results Results % Absolute Count (cells/uL) CD3 65 827 CD3+CD4+ 48 611 CD3+CD8+ 22 280 CD4:CD8 Ratio 2.18 CD19 11 140 CD27 54 687 CD56 20 254 sIgD 11 140 %CD4 & CD45RO 66 403 %CD4 &CD45RA 30 183 %CD27 & CD19 1 7 %CD19 & CD27 4 6 %CD19 & CD27 + IgD+ 1 1 %CD19 & CD27 + IgD- 0 0 %CD19 & CD27 - IgD+ 98 137 03/12/2020 4:24 PM [facility] Flow Cytometry Interpretation Testing is technical only and does not require an interpretation of results. 03/12/2020 4:24 PM [facility] Reference Range Adult Normal Reference Range Adult (> 18 years) CD3 54-84 % CD4 33-63 % CD8 12-39 % CD19 5-19 % CD56 6-26 % CD4+CD45RA+ 30-50 % CD4+CD45RO+ 17-42 % CD19+CD27+ 7-48 % CD19+CD27+IgD+ 7-29 % CD19+CD27+IgD- 3-23 % CD19+MX35-LlP+ 29-93 % % 03/12/2020 4:24 PM [facility] Disclaimer Test performed at [facility], [address] [place] [address], [facility]. This test was developed and its performance characteristics determined by the Flow Cytometry Laboratory. It has not been cleared by the [place] Food and Drug Administration (FDA). The FDA has determined that such clearance or approval is not necessary. This test is used for clinical purposes. It should not be regarded as investigational or for research. This laboratory is regulated under the Clinical Laboratory Improvement Amendments of 1998 (CLIA) as a qualified to perform high complexity clinical testing. By law [place], CD4 lymphocyte counts on patients with HIV infection must be reported by the physician to the [facility] Health authority. 03/12/2020 4:24 PM [facility] Embedded Images 0 4:24 PM [facility] Blood BLOOD SPECIMEN / Unknown Lab Venipuncture / Unknown 03/12/2020 8:50 AM AUTO BODY SHOP MANAGER 03/12/2020 9:08 AM AUTO BODY SHOP MANAGER Gerson Vieira MD LAB - PATHOLOGY/CYTO LOGY ORDERABLES [facility] LAB [address] [place] [address]. [place] [address], [facility] [phone] * CD4/CD8 ABSOLUTE + RATIO PANEL (02/14/2020 2:37 PM CDT) Only the most recent of4 resultswithin the time period is included. CD4 ([place] Cells) 50 30 - 61 % [facility] Absolute CD4 + Cells 603 490 - 1740 cells/uL [facility] % CD8 (Supressor T Cells) 22 12 - 42 % [facility] Absolute CD8 + Cells 261 180 - 1170 cells/uL [facility] Flagstaff/Supressor Ratio 2.3 0.86 - 5.00 [facility] Lymphocytes Absolute 1205 850 - 3900 cells/uL [facility] Comment: Test Performed at: [facility] [address] [address] SILVINO NICHOLSON MD,PHD,GAURANG Comments [facility] Comment: Test Performed at: [facility] [address] [phone] SILVINO NICHOLSON MD,PHD,GAURANG Blood BLOOD SPECIMEN / Unknown 02/14/2020 2:37 PM CDT 02/14/2020 2:37 PM CDT Andrew Galindo MD LAB - HEMATOLOGY ORD ERABLES Performing Organization Address [facility] de Phone Number [facility] [address] [place] [address] * LYMPHOCYTE SUBSET PANEL 3 (08/14/2017 3:44 PM CDT) Lymphocytes Absolute 1346 850 - 3900 cells/uL [facility] CD3 Absolute 957 840 - 3060 cells/uL [facility] CD3 % 71 57 - 85 % [facility] CD4 Absolute 707 490 - 1740 cells/uL [facility] CD4% 53 30 - 61 % [facility] CD8 Absolute 285 180 - 1170 cells/uL [facility] CD8 % 21 12 - 42 % [facility] CD4/CD8 Ratio 2.5 0.86 - 5.00 [facility] Comment: Test Performed at: [facility] [address] [phone] SILVINO NICHOLSON MD,PHD,GAURANG 08/14/2017 3:44 PM CDT 08/14/2017 3:45 PM CDT Andrew Galindo MD LAB - HEMATOLOGY ORD ERABLES Performing Organization Address [facility] Co de Phone Number [address] [address] * (ABNORMAL) IGA SUBCLASSES (01/17/2017 3:53 PM CDT) IgA1 <10 46 - 378 mg/dL [facility] ([facility]) IgA2 <1 13 - 91 mg/dL [facility] ([facility]) IgA 6(L) 81 - 463 mg/dL [facility] ([facility]) Comment: Test Performed at: [facility] [address] YOSELIN STANFORD MD,PHD 01/17/2017 3:53 PM CDT 01/17/2017 3:53 PM CDT Andrew Galindo MD LAB - SEROLOGY ORDER SJ [facility] ([facility]) * (ABNORMAL) IGG SUBCLASSES PANEL (01/17/2017 3:53 PM CDT) Only the most recent of2 resultswithin the time period is included. Pathologist [facility] IgG Subclass 1 300(L) 382 - 929 mg/dL [facility] ([facility]) IgG Subclass 2 97(L) 241 - 700 mg/dL [facility] ([facility]) IgG Subclass 3 38 22 - 178 mg/dL [facility] ([facility]) IgG Subclass 4 0.7(L) 4.0 - 86.0 mg/dL [facility] ([facility]) IgG 473(L) 694 - 1618 mg/dL [facility] ([facility]) Comment: Test Performed at: [facility] [address] YOSELIN STANFORD MD,PHD 01/17/2017 3:53 PM CDT 01/17/2017 3:53 PM CDT Andrew Galindo MD LAB - CHEMISTRY ORDE RABLES [facility] ([facility]) * CD4/CD8 + RATIO PANEL BLOOD (01/17/2017 3:53 PM CDT) Only the most recent of3 resultswithin the time period is included. Pathologist [facility] Lymphocytes Absolute 1458 850 - 3900 cells/uL [facility] ([facility]) T Lymphocyte Subsets 735 490 - 1740 cells/uL [facility] ([facility]) CD4 % 50 30 - 61 % [facility] ([facility]) CD8 ABS 308 180 - 1170 cells/uL [facility] ([facility]) CD8 % 21 12 - 42 % [facility] ([facility]) CD4/CD8 Ratio 2.4 0.86 - 5.00 [facility] ([facility]) Comment: Test Performed at: [facility] [address] [place] [address] JESUS BOSE MD PHD 01/17/2017 3:53 PM CDT 01/17/2017 3:53 PM CDT Andrew Galindo MD LAB - HEMATOLOGY ORD ERABLES [facility] ([facility]) * PFT-LAB (03/04/2016 8:56 AM CDT) Impressions [facility] RADI[facility] - 03/04/2016 8:56 AM CDT [facility] DEPARTMENT OF PULMONARY, CRITICAL CARE, AND SLEEP MEDICINE Karey Mckenna 03/04/2016 INTERPRETATION Please see technologist's comments mentioned above. SPIROMETRY: Forced vital capacity is normal. FEV1 is normal. FEV1/FVC ratio is normal. The inspection of the patient's flow-volume loops shows normal configuration of the inspiratory and expiratory limbs. LUNG VOLUMES: Lung volumes by body plethysmography are within normal limits. DLCO: Diffusing capacity adjusted for Hb and COHb is within normal limits. AIRWAY RESISTANCE: The airway resistance and the specific conductance are normal. IMPRESSION: 1. Mildly elevated corrected DLCO. 2. There is no previous study available for comparison. Dr Lucio Nance MD Pulmonary / Critical Care Fellow Division of Pulmonary, Critical Care, & Sleep Medicine [facility] Pager 03/04/2016 10:47 AM I have reviewed this study and agree with the interpretation by Dr. Nance. Buddy Rose M.D. Rn Physician Office of Internal Medicine Division of Pulmonary, Critical Care and Sleep Medicine [facility] Narrative Procedure Note Provider, MD Tyesha - 10/13/2017 IMPRESSION [facility] DEPARTMENT OF PULMONARY, CRITICAL CARE, AND SLEEP MEDICINE Karey Mckenna 03/04/2016 INTERPRETATION Please see technologist's comments mentioned above. SPIROMETRY: Forced vital capacity is normal. FEV1 is normal. FEV1/FVCratio is normal. The inspection of the patient's flow-volume loops shows normalconfiguration of the inspiratory and expiratory limbs. LUNG VOLUMES: Lung volumes by body plethysmography are within normallimits. DLCO: Diffusing capacity adjusted for Hb and COHb is within normallimits. AIRWAY RESISTANCE: The airway resistance and the specific conductance arenormal. IMPRESSION: 1. Mildly elevated corrected DLCO. 2. There is no previous study available for comparison. Dr Lucio Nance MD Pulmonary / Critical Care Fellow Division of Pulmonary, Critical Care, & Sleep Medicine [facility] Pager 03/04/2016 10:47 AM I have reviewed this study and agree with the interpretation by . Buddy Rose M.D. Rn Physician Office of Internal Medicine Division of Pulmonary, Critical Care and Sleep Medicine [facility] Andrew Galindo MD RESPIRATORY THERAPY ORDERABLES [facility] RADIOLOG[facility] * (ABNORMAL) DIPHTHERIA + TETANUS AB PANEL (02/12/2016) [facility] Diphtheria Antitoxoid Antibody 0.81 IU/mL [facility] ([facility]) Comment: REFERENCE RANGE: > or = 0.01 IU/mL (Post-Vaccination) INTERPRETIVE CRITERIA: <0.01 IU/mL Nonprotective Antibody Level > or = 0.01 IU/mL Protective Antibody Level This test was developed and its analytical performance characteristics have been determined by [facility]. It has not been cleared or approved by FDA. This assay has been validated pursuant to the CLIA regulations and is used for clinical purposes. Tetanus Antibody 0.38(L) IU/mL [facility] ([facility]) Comment: REFERENCE RANGE: > or = 0.50 IU/mL (Post-Vaccination) INTERPRETIVE CRITERIA: <0.05 IU/mL Nonprotective Antibody Level 0.05 - 0.49 IU/mL Indeterminate for Protective Antibody > or = 0.50 IU/mL Protective Antibody Level > or = 0.50 IU/mL Protective Antibody Level Levels greater than or equal to 0.50 IU/mL are generally considered protective, whereas levels less than 0.05 IU/mL indicate a lack of protective antibody. Levels between 0.05 and 0.49 IU/mL are indeterminate for the presence of protective antibody and may indicate a need for further immunization to tetanus toxoid. This test was developed and its analytical performance characteristics have been determined by [facility]. It has not been cleared or approved by FDA. This assay has been validated pursuant to the CLIA regulations and is used for clinical purposes. REPORT COMMENT: 2 ML SERUM, PLASTIC SCREW TOP VIAL, REFREGERATE Test Performed at: [facility] [id number] [place] [address] BOUCHRA GRIFFITH MD 02/12/2016 02/13/2016 3:4 9 AM CDT Narrative [facility] ([facility]) - 02/16/2016 4:00 PM CDT 2 mL serum, Plastic screw top vial, Refregerate Andrew Galindo MD LAB - SEROLOGY ORDER SJ [facility] ([facility]) * STREP PNEUMO ANTIBODY IGG 23 SEROTYPES PANEL (03/12/2015 3:27 PM AUTO BODY SHOP MANAGER) Serotype 1 (1) <0.3 mcg/mL [facility] ([facility]) Serotype 2 <0.3 mcg/mL [facility] ([facility]) Serotype 2 (3) <0.3 mcg/mL [facility] ([facility]) Serotype 4 (4) <0.3 mcg/mL [facility] ([facility]) Serotype 5 (5) <0.3 mcg/mL [facility] ([facility]) Serotype 8 (8) <0.3 mcg/mL [facility] ([facility]) Serotype 9 (9N) <0.3 mcg/mL [facility] ([facility]) Serotype 12 (12F) <0.3 mcg/mL [facility] ([facility]) Serotype 14 (14) 0.5 mcg/mL [facility] ([facility]) Serotype 17 <0.3 mcg/mL [facility] ([facility]) Serotype 19 (19F) <0.3 mcg/mL [facility] ([facility]) Serotype 20 0.3 mcg/mL [facility] ([facility]) Serotype 22 <0.3 mcg/mL [facility] ([facility]) Serotype 23 (23F) <0.3 mcg/mL [facility] ([facility]) Serotype 26 (6B) 2.8 mcg/mL [facility] ([facility]) Serotype 34 <0.3 mcg/mL [facility] ([facility]) Serotype 43 <0.3 mcg/mL [facility] ([facility]) Serotype 51 (7F) <0.3 mcg/mL [facility] ([facility]) Serotype 54 <0.3 mcg/mL [facility] ([facility]) Serotype 56 (18C) <0.3 mcg/mL [facility] ([facility]) Serotype 57 (19A) 2.2 mcg/mL [facility] ([facility]) Serotype 68 (9V) <0.3 mcg/mL [facility] ([facility]) Serotype 70 (33F) <0.3 mcg/mL [facility] ([facility]) Comment: Note: Serotype designations are [place] Islander nomenclature, with Yakut nomenclature in parentheses. Studies from the using radioimmunoassay suggested that vaccine-induced S. pneumoniae type-specific antibody levels of approximately 2.0 mcg/mL were protective against invasive pneumococcal disease. Newer methods (SIENA and multiplexed immunoassay) incorporating an absorption step to remove cross-reactive antibodies yield results that are comparable to each other, but are lower than those obtained with the original radioimmunoassay. Rigorous studies of protective antibody levels as determined by the newer methods have not been performed. In addition to antibody quantity, protection also depends on antibody avidity and opsonophagocytic activity. Evaluation of the response to pneumococcal vaccination is best accomplished by comparing pre-vaccination and post-vaccination antibody levels. A 2- to 4-fold increase in type-specific antibodies measured 4-6 weeks after vaccination is expected in immunocompetent adults. The number of serotypes for which a 2- to 4-fold increase is observed varies greatly among individuals; a consensus panel has suggested that individuals older than 5 years should respond to at least approximately 70% of pneumococcal serotypes. Adults >65 years old may exhibit a smaller (<2-fold) increase in type-specific antibody levels. This test was developed and its performance characteristics have been determined by [facility]. Performance characteristics refer to the analytical performance of the test. REPORT COMMENT: 0.5 ML SERUM, PLASTIC SCREW-CAP VAIL, ROOM TEMPERATURE Test Performed at: [facility] [id number] [place] [phone] BOUCHRA GRIFFITH MD 03/12/2015 3:27 PM AUTO BODY SHOP MANAGER 03/12/2015 3:27 PM AUTO BODY SHOP MANAGER Narrative [facility] ([facility]) - 03/14/2015 3:00 PM AUTO BODY SHOP MANAGER 0.5 mL serum, Plastic screw-cap vail, Room temperature Andrew Galindo MD LAB - CHEMISTRY XUAN CANDELARIO [facility] ([facility]) Care Teams Coremaking Supervisor Relationship Specialty Start Date End Date Roderick Suh MD [address] [place] [address] PCP - General Family Medicine 03/12/20
--- OUTSIDE RECORDS SUMMARY | 2024-07-10 16:41 | XMS_ITS | Clinical Summary ---
Author Organization [facility] Address [address] [place] [address] Care Team Providers Care Workplace Rehabilitation Officer Name Role Phone Roderick Suh MD Primary Care Provider Source Comments [facility],non-owned Affiliates and Associated Physician Practices is amultiple site organization consisting of ambulatory clinics and hospital sitesin [place] and [place]. This disclosure is being madepursuant to the Care Everywhere program and may not contain all information available regarding this patient. Last updated 18.[facility] Allergies No known active allergies Medications * Be aware that medications may not be up to date on this document. Alwaysverify current medications with the patient. 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 01/30/2018 Overview (01/30/2018): On 04/2015 Flow cytometry 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 Overview (01/30/2018): 02/12/2016 08/02/2016 01/17/2017 08/14/2017 ALC 1125 1092 1458 1346 CD4# 524 515 729 707 CD8# 231 247 308 285 IgG 455 (L) 472 (L) 473 (L) 461 (L) IGG Subclass1 300 (L) IGG Subclass2 97 (L) IGG Subclass3 38 IGG Subclass4 0.7 (L) IgA 5 (L) 6 (L) 6 (L) 8 (L) IgM 49 (L) 48 (L) 43 (L) Component Latest Ref Rng & Units 08/14/2017 01/17/2017 08/08/2016 02/12/2016 Lymph Abs 850 - 3900 cells/uL 1346 CD3 Absolute 840 - 3060 cells/uL 957 CD3% 57 - 85 % 71 CD4 Absolute 490 - 1740 cells/uL 707 CD4, % 30 - 61 % 53 47 CD8 Absolute 180 - 1170 cells/uL 285 CD8 % 12 - 42 % 21 21 22 21 CD4/CD8 Ratio 0.86 - 5.00 2.5 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 (F LUZONE; FLULAVAL; FLUARIX; AFLURIA QUADRIVALENT; 6MO+), 0.5 ML (IIV4) 04/07/2019 PNEUMOCOCCAL PPSV23 02/12/2015 Social History Tobacco Use Types Packs/Day Years [...] Sex Assigned at Male 03/15/2021 6:37 PM SCRAP WHEELER Gender Identity Male 03/15/2021 6:37 PM SCRAP WHEELER Sexual Orientation Not on file Last Filed Vital Signs Vital Sign Reading Time Taken Comments Blood Pressure 129/87 03/21/2024 3:31 PM SCRAP WHEELER Pulse 84 03/21/2024 3:31 PM SCRAP WHEELER Temperature 36.4 C (97.5 F) 03/21/2024 3:31 PM SCRAP WHEELER Respiratory Rate 20 04/03/2019 3:11 PM SCRAP WHEELER Oxygen Saturation 96% 03/21/2024 3:31 PM SCRAP WHEELER Inhaled Oxygen Concentration - - Weight 100.7 kg (222 lb) 03/21/2024 3:31 PM SCRAP WHEELER Height 185.4 cm (6' 1 ) 03/21/2024 3:31 PM SCRAP WHEELER Body Mass Index 29.29 03/21/2024 3:31 PM SCRAP WHEELER Plan of Treatment Health Maintenance Due Date Last Done Comments COLOGUARD (AGES 45-75) - COLON CA SCREENING [address] COLONOGRAPHY - COLON CA SCREENING 1972 FIT - COLON CA SCREENING 1972 FLEX SIG - COLON CA SCREENING 1972 LIPID TESTING 1972 HIV SCREENING 1987 HEPATITIS C SCREENING 05/04/1990 DTAP/TDAP/TD VACCINES (1 - Tdap) 1991 HEPATITIS B VACCINE (1 of 3 - 19+ 3-dose series) 1991 ZOSTER VACCINE (1 of 2) 1991 PNEUMOCOCCAL VACCINE 50+ (2 of 2 - PCV) 02/13/2016 02/12/2015 COVID-19 VACCINE (3 - Moderna risk series) 08/07/2020 07/10/2020, 06/12/2020 INFLUENZA VACCINE (#1) 2024 04/07/2019 DEPRESSION SCREENING 2024 03/21/2024, 03/23/20 23 SCREENING FOR DIABETES 03/14/2027 4, 02/15/2023, 04/05/2021, Additional history exists COLONOSCOPY - COLON CA SCREENING 06/07/2032 06/07/2022 Colorectal Cancer Screening 06/07/2032 HIB VACCINE Aged Out No longer eligi ble based on patient's age to complete this topic HPV VACCINE Aged Out No longer eligi ble based on patient's age to complete this topic MENINGOCOCCAL (Group B) VACCINE Aged Out No longer eligible based on patient's age to complete this topic MENINGOCOCCAL VACCINE Aged Out No yaritza shari eligible based on patient's age to complete this topic Goals Goal Patient Goal Type Associated Problems Recent Progress Patient-Stated? Author Medication Management General On track( 020 9:19 AM SCRAP WHEELER) Geri Ambrose, RN Note: Expected end date: ongoing Interventions: Take all medications as prescribed Let your doctor know right away about any changes in your medications Make sure to request a refill of your medication at least one week prior to your last dose Procedures Procedure Name Priority Date/Time Associated Diagnosis Comments COMPREHENSIVE METABOLIC PANEL 03/14/2024 6:11 AM SCRAP WHEELER from Last 3 Months or Most Recently Relevant to Health Maintenance Results * (ABNORMAL) COMPREHENSIVE METABOLIC PANEL (03/14/2024 6:11 AM SCRAP WHEELER) Glucose 100(H) 65 - 99 mg/dL [facility] [...] 46 U/L [facility] Comment: Test Performed at: [facility] [address] [place] [address] JUN CARPENTER MD 03/14/2024 6:11 AM SCRAP WHEELER 03/14/2024 6:12 AM SCRAP WHEELER Andrew Galindo MD LAB - CHEMISTRY XUAN CANDELARIO [facility] [address] [place] [address] from Last 3 Months or Most Recently Relevant to Health Maintenance Care Teams Workplace Rehabilitation Officer Relationship Specialty Start Date End Date Roderick Suh MD [address] [place] [address] PCP - General Family Medicine 03/12/20
--- OUTSIDE RECORDS SUMMARY | 2024-07-10 16:41 | XMS_ITS | Encounter Summary ---
Author Organization [facility] Health Address [address] [place] [address] Care Team Providers Care Aeronautical Engineering Teacher Name Role Phone Roderick Suh MD Primary Care Provider Encounter Details Date Type Department Care Team (Late st Contact Info) Description 02/26/2024 Telephone [facility] - Allergy [address] [place] [address], [place] [address] Andrew Galindo MD [address] [place] [address] OF ALLERGY/[place] [address] Social History Tobacco Use Types Packs/Day Years Used Date Smoking Tobacco: Never Smokeless Tobacco: Never Alcohol Use Standard Drinks/Week Comments No 0 (1 standard drink = 0.6 oz pur e alcohol) Social, maybe once a month. PHQ-2 Answer Date Recorded Patient Health Questionnaire-2 Score 0 03/23/2023 Sex and Gender Information Value Date Recorded Sex Assigned at Male 03/15/2021 6:37 PM PHLEBOTOMY TECHNOLOGIST Gender Identity Male 03/15/2021 6:37 PM PHLEBOTOMY TECHNOLOGIST Sexual Orientation Not on file documented as of this encounter Miscellaneous Notes * Telephone Encounter - Marcela Crowley - 02/26/2024 11:16 AM CDT Current Provider: Dr. Andrew Galindo Reason for Call: Mr. Karey Mckenna would like to change his 03/14/2024 to VIDEO appt. He lives in [place] and I did advise we can't do VIDS for [place], he said he had previously don VIDEO appts. Please advise. Patient Call Back Number: [phone] documented in this encounter Plan of Treatment Not on file documented as of this encounter Goals Goal Patient Goal Type Associated Problems Recent Progress Patient-Stated? Author Medication Management General On track( 020 9:19 AM PHLEBOTOMY TECHNOLOGIST) Geri Ambrose, RN Note: Expected end date: ongoing Interventions: Take all medications as prescribed Let your doctor know right away about any changes in your medications Make sure to request a refill of your medication at least one week prior to your last dose documented as of this encounter Visit Diagnoses Not on filedocumented in this encounter Care Teams Aeronautical Engineering Teacher Relationship Specialty Start Date End Date Roderick Suh MD [address] [place] [phone] PCP - General Family Medicine 03/12/20 documented as of this encounter
--- OUTSIDE RECORDS SUMMARY | 2024-07-10 16:41 | XMS_ITS | Referral Summary ---
Author Organization [facility] Address [address] [facility] [place] [address] Care Team Providers Care Nut Sorter Operator Name Role Phone Roderick Suh MD Primary Care Provider Source Comments [facility],non-owned Affiliates and Associated Physician Practices is amultiple site organization consisting of ambulatory clinics and hospital sitesin [place], [place], [place] and [place]. This disclosure is being madepursuant to the Care Everywhere program and may not contain all information available regarding this patient. Last updated 18.[facility] Allergies No known active allergies Medications * [...] Sex Assigned at Male 03/15/2021 6:37 PM MOBILE HOME PARK MANAGER Gender Identity Male 03/15/2021 6:37 PM MOBILE HOME PARK MANAGER Sexual Orientation Not on file Last Filed Vital Signs Vital Sign Reading Time Taken Comments Blood Pressure 129/87 03/21/2024 3:31 PM MOBILE HOME PARK MANAGER Pulse 84 03/21/2024 3:31 PM MOBILE HOME PARK MANAGER Temperature 36.4 C (97.5 F) 03/21/2024 3:31 PM MOBILE HOME PARK MANAGER Respiratory Rate 20 04/03/2019 3:11 PM MOBILE HOME PARK MANAGER Oxygen Saturation 96% 03/21/2024 3:31 PM MOBILE HOME PARK MANAGER Inhaled Oxygen Concentration - - Weight 100.7 kg (222 lb) 03/21/2024 3:31 PM MOBILE HOME PARK MANAGER Height 185.4 cm (6' 1 ) 03/21/2024 3:31 PM MOBILE HOME PARK MANAGER Body Mass Index 29.29 03/21/2024 3:31 PM MOBILE HOME PARK MANAGER Plan of Treatment Not on file Goals Goal Patient Goal Type Associated Problems Recent Progress Patient-Stated? Author Medication Management General On track( 020 9:19 AM MOBILE HOME PARK MANAGER) Geri Ambrose, RN Note: Expected end date: ongoing Interventions: Take all medications as prescribed Let your doctor know right away about any changes in your medications Make sure to request a refill of your medication at least one week prior to your last dose Procedures Procedure Name Priority Date/Time Associated Diagnosis Comments COMPREHENSIVE METABOLIC PANEL 03/14/2024 6:11 AM MOBILE HOME PARK MANAGER from Last 3 Months or Most Recently Relevant to Health Maintenance Results * (ABNORMAL) COMPREHENSIVE METABOLIC PANEL (03/14/2024 6:11 AM MOBILE HOME PARK MANAGER) Glucose 100(H) 65 - 99 mg/dL [facility] [...] 46 U/L [facility] Comment: Test Performed at: [facility] [address] [place] [address] JUN CARPENTER MD 03/14/2024 6:11 AM MOBILE HOME PARK MANAGER 03/14/2024 6:12 AM MOBILE HOME PARK MANAGER Andrew Galindo MD LAB - CHEMISTRY XUAN CANDELARIO [facility] Organization Address City/State/ZIP Co de Phone Number [facility] [address] [place] [address] from Last 3 Months or Most Recently Relevant to Health Maintenance Care Teams Nut Sorter Operator Relationship Specialty Start Date End Date Roderick Suh MD [address] [place] [phone] PCP - General Family Medicine 03/12/20
--- OUTSIDE RECORDS SUMMARY | 2024-07-10 16:41 | XMS_ITS | Encounter Summary ---
Author Organization [facility] Health Address [address] [place] [address] Care Team Providers Care Manager Trading Name Role Phone Mario Alberto Greenfield MD Primary Care Provider [phone] Roderick Suh MD Primary Care Provider Encounter Details Date Type Department Care Team (Late st Contact Info) Description 11/15/2017 Telephone [facility] [address] [place] [address] Herbie Juan DO [address] [place] [address] Social History Tobacco Use Types Packs/Day Years Used Date Smoking Tobacco: Never Smokeless Tobacco: Never Alcohol Use Standard Drinks/Week Comments Yes 0 (1 standard drink = 0.6 oz pur e alcohol) Sex and Gender Information Value Date Recorded Sex Assigned at Male 03/15/2021 6:37 PM SVP RESEARCH AND STRATEGIC ANALYSIS Gender Identity Male 03/15/2021 6:37 PM SVP RESEARCH AND STRATEGIC ANALYSIS Sexual Orientation Not on file documented as of this encounter Miscellaneous Notes * Telephone Encounter - Herbie Juan DO - 11/15/2017 9:54 AM CDT Karey Cuenca Clarisa is a 47 y.o. male with evolving CVID: ? 02/12/2016 08/02/2016 01/17/2017 ??ALC ??[id number] ??CD4# ??[id number] ??CD8# ??[id number] ??IgG ??455 (L) 472 (L) 473 (L) IGG Subclass1 ? 300 (L) IGG Subclass2 ? 97 (L) IGG Subclass3 ? 38 IGG Subclass4 ? 0.7 (L) ??IgA ??5 (L) 6 (L) 6 (L) ??IgM ??49 (L) ?? 48 (L) ?? IgM 48 - 271 mg/dL 43 (L) Comments: Test Performed at: [facility] [address] [place], [place] ??[id number] MGADA STEVENSON DO,MPH IgG Blood 694 - 1618 mg/dL 461 (L) Comments: Test Performed at: [facility] [address] [place], [place] ??[phone] MAGDA STEVENSON DO,MPH Immunoglobulin G Subclass 1 382 - 929 mg/dL 300 (L) Immunoglobulin G Subclass 2 241 - 700 mg/dL 97 (L) Immunoglobulin G Subclass 3 22 - 178 mg/dL 38 Immunoglobulin G Subclass 4 4.0 - 86.0 mg/dL 0.7 (L) IMMUNOGLOBULIN G, SERUM ([facility]) 694 - 1618 mg/dL 473 (L) IMMUNOGLOBULIN A 81 - 463 mg/dL 8 (L) IGA1 46 - 378 mg/dL <10 IGA2 13 - 91 mg/dL <1 IgA 81 - 463 mg/dL 6 (L) Ref Range & Units 3mo ago Lymph Abs 850 - 3900 cells/uL 1346 CD3 Absolute 840 - 3060 cells/uL 957 CD3% 57 - 85 % 71 CD4 Absolute 490 - 1740 cells/uL 707 CD4% 30 - 61 % 53 CD8 Absolute 180 - 1170 cells/uL 285 CD8% 12 - 42 % 21 CD4/CD8 Ratio 0.86 - 5.00 2.5 documented in this encounter Plan of Treatment Not on file documented as of this encounter Visit Diagnoses Not on filedocumented in this encounter Care Teams Manager Trading Relationship Specialty Start Date End Date Mario Alberto Greenfield MD [address] [place] [address] PCP - General 01/22/15 03/11/20 Roderick Suh MD [address] [place] [phone] PCP - General Family Medicine 03/12/20 documented as of this encounter
--- OUTSIDE RECORDS SUMMARY | 2024-07-10 16:41 | XMS_ITS | Clinical Summary ---
Author Organization [facility] Address [address] [place] [address] Care Team Providers Care Detective Youth Bureau Name Role Phone Unavailable Primary Care Provider Unavailabl e Allergies No known active allergies Medications benzonatate (TESSALON) 100 MG capsule 3 (three) times daily as needed. 09/23/2021 Active fexofenadine (QC FEXOFENADINE HYDROCHLORIDE) 180 MG tablet Take 180 mg by mouth as needed for Allergies. Active Active Problems Problem Noted Date Diagnosed Date Screen for colon cancer 05/20/2022 Overview (05/20/2022): Added automatically from request for surgery [id number] Family history of colon cancer in mother 023 Overview (05/20/2022): Added automatically from request for surgery [id number] History of colon polyps 05/20/2022 Overview (05/20/2022): Added automatically from request for surgery [id number] Family History Medical History Relation Comments Cancer Mother Relation Status Comments Mother Social History Tobacco Use Types Packs/Day Years Used Date Smoking Tobacco: Never Passive Smoke Exposure: Never Smokeless Tobacco: Never Tobacco Cessation:Counseling Given: Not Answered Alcohol Use Standard Drinks/Week Comments Yes 1.7 (1 standard drink = 0.6 oz p ure alcohol) 1-2 beer every 3-4 months Sex and Gender Information Value Date Recorded Sex Assigned at Not on file Legal Sex Male 7:00 PM CDT Gender Identity Not on file Sexual Orientation Not on file Last Filed Vital Signs Vital Sign Reading Time Taken Comments Blood Pressure 128/84 06/07/2022 11:31 AM COVER SEAMER Pulse 71 06/07/2022 11:31 AM COVER SEAMER Temperature 36.4 C (97.6 F) 06/07/2022 8:52 AM COVER SEAMER Respiratory Rate 18 06/07/2022 11:01 AM COVER SEAMER Oxygen Saturation 99% 06/07/2022 11:01 AM COVER SEAMER Inhaled Oxygen Concentration - - Weight 98.4 kg (217 lb) 06/01/2022 9:28 AM COVER SEAMER Height 185.4 cm (6' 1 ) 06/01/2022 9:28 AM COVER SEAMER Body Mass Index 28.63 06/01/2022 9:28 AM COVER SEAMER Plan of Treatment Health Maintenance Due Date Last Done Comments Annual Physical 1975 Hepatitis C 1990 Hepatitis B Vaccines (1 of 3 - 19+ 3-dose series) 1991 DTaP, Tdap and Td Vaccines ( 2 - Td or Tdap) 08/12/2019 08/11/2009, 07/27/1999 Zoster Vaccines (1 of 2) 2022 COVID-19 Vaccine (4 - 2023-2 5 season) 2024 04/25/2021, 07/10/2020, 06/12/2020 Influenza Adult (#1) 2024 04/07/2019 Colorectal Cancer Screening Colonoscopy (10 Years) 06/07/2032 06/07/2022, 06/07/2022 Pneumococcal Vaccine: Pediatrics (0 to 5 Years) and At-Risk Patients (6 to 64 Years) Aged Out 02/12/2015, 05/26/2014 No longer eligible based on patient's age to complete this topic Meningococcal B Vaccine Aged Out No l onger eligible based on patient's age to complete this topic Meningococcal Vaccine Aged Out No yaritza shari eligible based on patient's age to complete this topic RSV Immunizations Under 20 Months Aged Out No longer eligible b ased on patient's age to complete this topic Procedures Procedure Name Priority Date/Time Associated Diagnosis Comments COLONOSCOPY Routine 06/07/2022 8:36 AM COVER SEAMER from Last 3 Months or Most Recently Relevant to Health Maintenance Insurance [facility]
--- OUTSIDE RECORDS SUMMARY | 2024-07-10 16:41 | XMS_ITS | Encounter Summary ---
Author Organization [facility] Health Address [address] [place] [address] Care Team Providers Care Cupola Tapper Name Role Phone Roderick Suh MD Primary Care Provider Encounter Details Date Type Department Care Team (Late st Contact Info) Description 03/07/2022 Telephone [facility] [address] [place] [address] Andrew Galindo MD [facility] OF ALLERGY/[place] [address] Social History Tobacco Use Types Packs/Day Years Used Date Smoking Tobacco: Never Smokeless Tobacco: Never Alcohol Use Standard Drinks/Week Comments No 0 (1 standard drink = 0.6 oz pur e alcohol) Social, maybe once a month. PHQ-2 Answer Date Recorded PHQ2 TOTAL SCORE 0 05/20/2021 Sex and Gender Information Value Date Recorded Sex Assigned at Male 03/15/2021 6:37 PM ROSTER CLERK Gender Identity Male 03/15/2021 6:37 PM ROSTER CLERK Sexual Orientation Not on file documented as of this encounter Miscellaneous Notes * Telephone Encounter - Uziel Bynum - 03/07/2022 2:05 PM CDT Patient has been scheduled for a video visit on 04/14/22 and is requesting a blood lab order to be sent to [facility] in [place], [place] so that they may be ready for review in time. Call Back #: [phone] documented in this encounter Plan of Treatment Scheduled Orders Name Type Priority Associated Diagnoses Orde r Schedule COMPREHENSIVE METABOLIC PANEL Lab Routine Hypogammaglobulinemia (HCC) Ordered: 03/10/2022 documented as of this encounter Goals Goal Patient Goal Type Associated Problems Recent Progress Patient-Stated? Author Medication Management General On track( 020 9:19 AM ROSTER CLERK) Geri Ambrose, RN Note: Expected end date: ongoing Interventions: Take all medications as prescribed Let your doctor know right away about any changes in your medications Make sure to request a refill of your medication at least one week prior to your last dose documented as of this encounter Procedures Procedure Name Priority Date/Time Associated Diagnosis Comments CBC W AUTO DIFFERENTIAL Routine 03/19/2022 11:35 AM ROSTER CLERK Hypogammaglobulinem ia (HCC) IGG BLOOD Routine 03/19/2022 11:35 AM ROSTER CLERK Hypogammaglobulinem ia (HCC) documented in this encounter Results * CBC WITH DIFFERENTIAL (03/19/2022 11:35 AM ROSTER CLERK) Pathologist [facility] White Blood Cell Count 6.1 3.8 - 10.8 Thousand/u L [facility] RBC 5.35 4.20 - 5.80 Million/uL [facility] Hemoglobin 15.5 13.2 - 17.1 g/dL [facility] Hematocrit 46.8 38.5 - 50.0 % [facility] MCV 87.5 80.0 - 100.0 fL [facility] MCH 29.0 27.0 - 33.0 pg [facility] MCHC 33.1 32.0 - 36.0 g/dL [facility] RDW 13.1 11.0 - 15.0 % [facility] Platelet Count 187 140 - 400 Thousand/u L [facility] MPV 10.6 7.5 - 12.5 fL [facility] Neutrophil Absolute 4185 1500 - 7800 cells/uL [facility] Lymphocytes Absolute 1263 850 - 3900 cells/uL [facility] Absolute Monocytes 482 200 - 950 cells/uL [facility] Eosinophils Absolute 171 15 - 500 cells/uL [facility] Basophils Absolute 0 0 - 200 cells/uL [facility] Granulocytes % 68.6 % [facility] Lymphocytes % 20.7 % [facility] Monocytes % 7.9 % [facility] Eosinophils % 2.8 % [facility] Basophils % 0.0 % [facility] Comment: Test Performed at: [facility] [address] [place] [address] MAGDA STEVENSON DO,MPH Blood BLOOD SPECIMEN / Unknown 03/19/2022 11:35 AM ROSTER CLERK 03/19/2022 11:36 AM ROSTER CLERK Andrew Galindo MD LAB - HEMATOLOGY ORD ERABLES Performing Organization Address City/[facility] Co de Phone Number [facility] [address] [place] [address] * (ABNORMAL) IGG BLOOD (03/19/2022 11:35 AM ROSTER CLERK) IgG 432(L) 600 - 1640 mg/dL [facility] Comment: Test Performed at: [facility] [address] [place] [address] MAGDA STEVENSON DO,MPH Blood BLOOD SPECIMEN / Unknown 03/19/2022 11:35 AM ROSTER CLERK 03/19/2022 11:36 AM ROSTER CLERK Andrew Galindo MD LAB - CHEMISTRY ORDE RABLES Performing Organization Address City/[facility] Co de Phone Number [facility] [address] [place] [address] documented in this encounter Visit Diagnoses Diagnosis Hypogammaglobulinemia (HCC)- Primary Hypogammaglobulinaemia, unspecified documented in this encounter Care Teams Cupola Tapper Relationship Specialty Start Date End Date Roderick Suh MD [address] [place] [address] PCP - General Family Medicine 03/12/20 documented as of this encounter
--- NOTE | 2024-07-10 17:46 | ED.CHESTPAIN ---
HPI - Chest Pain General Chief Complaint: Chest Pain Stated Complaint: cp Time Seen by Provider: 07/10/24 15:06 History of Present Illness HPI narrative: Patient is a 54-year-old male who presents the ER with chest pain intermittently over last 2 weeks. No exertional component. No dyspnea. No fevers or chills or sweats. No known sick contacts. No history of heart disease. Had an EKG performed at his PCPs and was referred here. Is aching in the center of his chest. Cannot identify modifying factors. Notices it more when he is at rest. No acid reflux component. Related Data Home Medications ?Medication ?Instructions ?Recorded ?Confirmed ?Last Taken ?Type cholecalciferol (vitamin D3) 50 50 mcg PO DAILY 04/17/24 07/10/24 Unknown History mcg (2,000 unit) capsule fexofenadine 180 mg tablet 180 mg PO DAILY PRN 04/17/24 07/10/24 Unknown History (Nidia Hives) Allergies Allergy/AdvReac Type Severity Reaction Status Date / Time No Known Allergies Allergy Mild Verified 07/10/24 14:01 Review of Systems Review of Systems: All systems reviewed & are unremarkable except as noted in HPI and below Constitutional: Constitutional: Reports no additional constitutional complaints Cardiovascular: Cardiovascular: Reports no additional cardiovascular complaints Respiratory: Respiratory: Reports no additional respiratory complaints Gastrointestinal: Gastrointestinal: Reports no additional gastrointestinal complaints [facility] Past Medical History Medical History Recurrent herpes labialis Non-allergic rhinitis Hypogammaglobulinemia Family history of colon cancer CVID (common variable immunodeficiency) Colon polyps Surgical History Surgical History History of wisdom tooth extraction (~1988) History of tonsillectomy Family History Family History Father Hypertension Mother Hypertension Depression Anxiety Cancer Sibling Hypertension Cancer Grandparent Diabetes mellitus Hypertension Depression Anxiety Cancer Grandparent Hypertension Cerebrovascular accident Cancer Other Carcinoma of colon Social History Social History Social History: Caffeine- coffee Smoking status: Never smoker Second hand tobacco smoke exposure: No Alcohol intake: current Alcohol use details: 1 drink consumed every couple months Substance use: never Substance use type: does not use Do You Feel Safe in your Home?: Yes Lack of Transportation: No Lack of Food: Never True Current Housing: I Have Housing Concerned About Future Housing: No Difficulty Paying Gas/Electric Bills: No Difficulty Paying for Meds: No Currently Unemployed: No Difficulty w/ Childcare or Family Care: No Living arrangements: with family Occupation/Education: occupation Gender identity (if verbalized by the patient): Male Agree to blood products: Yes Exam Narrative: GENERAL: Well-appearing, well-nourished, and in no acute distress. HEAD: Normocephalic, atraumatic. ENT: Mucous membranes moist. CHEST: Clear to auscultation. No respiratory distress. HEART: Regular rate and rhythm. Normal peripheral pulses. ABDOMEN: Soft, nontender, nondistended. EXTREMITIES: Normal range of motion. No edema. SKIN: Warm, dry, no rash. NEURO: Alert and oriented x3. PSYCH: Normal mood and affect. Course Course Emergency Course: Patient resting comfortably. Informed of results. EKG unremarkable and unchanged from EKG in 2020. Appropriate for discharge home and follow-up with PCP. If continued concern for chest discomfort he can get an outpatient stress test. Vital Signs Vital signs: Vital Signs Temperature 98.7 F 07/10/24 14:56 Pulse Rate 92 07/10/24 14:56 Respiratory Rate 16 07/10/24 14:56 Blood Pressure 147/87 H 07/10/24 14:56 Pulse Oximetry 99 07/10/24 14:56 Oxygen Delivery Room Air 07/10/24 14:56 Temperature 98.2 F 07/10/24 15:07 Pulse Rate 74 07/10/24 17:49 Respiratory Rate 19 07/10/24 17:49 Blood Pressure 119/88 07/10/24 17:49 Pulse Oximetry 96 07/10/24 17:49 Oxygen Delivery Room Air 07/10/24 15:07 MDM - Chest Pain Lab Data 07/10/24 15:26 07/10/24 15:26 Labs: Lab Results 07/10/24 Range/Units 15:26 WBC 8.1 (4.5-10.0) K/mm3 RBC 5.31 (4.6-6.20) M/mm3 Hgb 16.0 (14.0-18.0) g/dL Hct 45.8 (42.0-52.0) % MCV 86.3 (80-100) fl MCH 30.1 (26-34) pg MCHC 34.9 (32-36) g/dl RDW 12.5 (11.5-14.5) % Plt Count 211 (150-375) k/mm3 MPV 9.1 (7.4-10.4) fl Immature Gran % (Auto) 0.2 (0-0.5) % Neut % (Auto) 79.9 H (45.5-73.1) % Lymph % (Auto) 11.4 L (18.3-44.2) % [place] % (Auto) 6.8 (2.6-8.5) % Eos % (Auto) 1.6 (0-4.4) % Baso % (Auto) 0.1 L (0.2-1.2) % Lymph # (Auto) 0.92 (0.9-3.2) K/mm3 [place] # (Auto) 0.6 (0.1-0.6) K/mm3 Eos # (Auto) 0.1 (0-0.3) K/mm3 Baso # (Auto) 0.0 (0.0-0.1) K/mm3 Abs Immat Gran (auto) 0.02 (0.00-0.031) K/mm3 Absolute Neuts (auto) 6.5 (1.3-6.7) K/mm3 Absolute Nucleated RBC 0.000 (0.0-0.012) K/mm3 Nucleated RBC % 0.0 (0.0-0.2) % PT 12.3 (11.1-14.7) Seconds INR 0.9 APTT 28.1 (22.3-36.8) Seconds Sodium 142 (137-145) mmol/L Potassium 3.9 (3.4-5.0) mmol/L Chloride 104 (98-107) mmol/L Carbon Dioxide 27 (22-30) mmol/L Anion Gap 11 (4-12) mmol/L BUN 21 H (9-20) mg/dL Creatinine 1.07 (0.7-1.3) mg/dL Estim Creat Clear Calc 79 ml/min Estimated GFR > 60 (59 - ) Glucose 102 (65-110) mg/dL Calcium 9.3 (8.4-10.2) mg/dL Total Bilirubin 1.4 H (0.2-1.3) mg/dL AST 24 (17-59) U/L ALT 22 (6-50) U/L Alkaline Phosphatase 81 (38-126) U/L Troponin I < 0.012 (0.000-0.034) ng/mL Total Protein 7.0 (6.3-8.2) g/dL Albumin 4.3 (3.5-5.1) g/dL Lipase 64 (23-300) U/L Imaging Data Radiologist's impression: ITS Impressions Chest X-Ray 07/10/24 15:41 IMPRESSION: 1. No acute cardiopulmonary disease. ECG Data EKG #1: ECG completion date: 07/10/24 ECG completion time: 15:03 EKG Interpretation: normal rate (85), sinus rhythm, normal QRS, normal QT and left axis Discharge Plan Discharge Clinical Impression: Chest pain Patient Disposition: Home, Self-Care Condition: Stable Instructions: Chest Pain (ED) Additional Instructions: Please return to the emergency department if you develop severe and persistent chest pain, difficulty breathing, dizziness, leg swelling or if you are coughing up blood as these can be signs of a medical emergency. Please call your doctor for a follow up appointment to determine the need for further testing. Patient Language: Bulgarian Prescriptions: No Action fexofenadine [Nidia Hives] 180 mg tablet 180 mg PO DAILY PRN cholecalciferol (vitamin D3) 50 mcg (2,000 unit) capsule 50 mcg PO DAILY valacyclovir 1 gram tablet 2,000 mg PO Q12H PRN (Reason: cold sores) Qty: 20 0RF Rx Instructions: take 2 tablets p.o. b.i.d. for 1 day with recurrence of cold sores as needed Follow-up/Referrals: Saran Suh MD [Primary Care Provider] - 1 Week Quality HEART score for chest pain patients History: slightly suspicious ECG: normal Age: > 45 and < 65 years Risk factors: 1 or 2 risk factors Troponin: < or = to 1x normal limit Heart score: 2
[2024-07-10 17:49] VITALS: BP 119/88; PULSE 74; RESP 19; O2SAT 96
[2024-07-10 18:24] VITALS: BP 132/91; PULSE 77; RESP 18; TEMP 36.8; O2SAT 94
== END 2024-07-10 18:26 | disposition home or self-care (01) ==
PROVIDERS: Emergency Provider Emergency Medicine; PCP Family Medicine
DX: R07.9 Chest pain, unspecified (principal); D83.9 Common variable immunodeficiency, unspecified; Z86.0100 Personal history of colon polyps, unspecified; R94.31 Abnormal electrocardiogram [ECG] [EKG]
CPT/HCPCS: 36415; 71046; 80053; 83690; 84484; 85025; 85610; 85730; 93005; 99284; A9270

== ENCOUNTER 2024-07-20 12:45 | Emergency (ER) | payer BC, SELFPAY ==
[2024-07-20 13:00] VITALS: BP 137/83; PULSE 81; RESP 18; TEMP 36.7; O2SAT 99
--- NOTE | 2024-07-20 13:00 | ED.URI ---
HPI - URI/Sore Throat General Chief Complaint: Upper Respiratory Infection Stated Complaint: Left Eye Irritation/Sinus Time Seen by Provider: 07/20/24 13:00 Source: patient Mode of arrival: ambulatory Limitations: no limitations History of Present Illness HPI Narrative: 54-year-old male presents with complaint purulent nasal drainage, sinus pressure and congestion, sinus headaches for approximately 8 days. Patient reports redness, drainage, irritation to left eye for 2-3 days. Afebrile. Taking Nidia daily. All systems reviewed and negative except as noted above. Related Data Home Medications ?Medication ?Instructions ?Recorded ?Confirmed ?Last Taken ?Type cholecalciferol (vitamin D3) 50 50 mcg PO DAILY 04/17/24 07/20/24 Unknown History mcg (2,000 unit) capsule fexofenadine 180 mg tablet 180 mg PO DAILY 04/17/24 07/20/24 Unknown History (Nidia Hives) Allergies Allergy/AdvReac Type Severity Reaction Status Date / Time No Known Allergies Allergy Mild Verified 07/20/24 12:58 Review of Systems Review of Systems: CONSTITUTIONAL: Denies fever, chills, or sweats. EYES: Denies visual changes reports left eye redness, itching, discharge. ENT: Reports rhinorrhea, congestion, sinus pressure, sinus headache. Denies sore throat, or otalgia. CARDIOVASCULAR: Denies chest pain, palpitations, or edema. RESPIRATORY: Denies cough or dyspnea. GASTROINTESTINAL: Denies abdominal pain, nausea, vomiting, or diarrhea. GENITOURINARY: Denies dysuria or hematuria. SKIN: Denies rash or itching. MUSCULOSKELETAL: Denies back pain, joint pain, or myalgia. NEUROLOGIC: Denies headache, numbness, or weakness. PSYCHIATRIC: Denies anxiety or depression. All other systems reviewed are negative, except as documented in HPI. [facility] Past Medical History Medical History Recurrent herpes labialis Non-allergic rhinitis Hypogammaglobulinemia Family history of colon cancer CVID (common variable immunodeficiency) Colon polyps Surgical History Surgical History History of wisdom tooth extraction (~1988) History of tonsillectomy Family History Family History Father Hypertension Mother Hypertension Depression Anxiety Cancer Sibling Hypertension Cancer Grandparent Diabetes mellitus Hypertension Depression Anxiety Cancer Grandparent Hypertension Cerebrovascular accident Cancer Other Carcinoma of colon Social History Social History Social History: Caffeine- coffee Smoking status: Never smoker Second hand tobacco smoke exposure: No Alcohol intake: current Alcohol use details: 1 drink consumed every couple months Substance use: never Substance use type: does not use Do You Feel Safe in your Home?: Yes Lack of Transportation: No Lack of Food: Never True Current Housing: I Have Housing Concerned About Future Housing: No Difficulty Paying Gas/Electric Bills: No Difficulty Paying for Meds: No Currently Unemployed: No Difficulty w/ Childcare or Family Care: No Living arrangements: with family Occupation/Education: occupation Gender identity (if verbalized by the patient): Male Agree to blood products: Yes Comments At time of signature, agree with nursing past medical, surgical, social and family history. There is no relevant family history pertinent to the presenting complaint. Exam Narrative: GENERAL: This is a well-nourished, well-developed patient, in no apparent distress. HEAD: normocephalic, atraumatic. EYES: PERRL. Sclera And conjunctiva of right eye clear/white. left sclera and conjunctiva erythematous with yellow drainage. Vision is grossly intact. EARS: External ears normal, auditory canals clear and without drainage, TMs normal without perforation. Hearing grossly intact. NOSE: External nose normal with purulent nasal drainage, erythema and swelling to bilateral nares. THROAT: Mucous membranes moist, Erythema with postnasal drainage. No swelling or exudates. NECK: Neck supple, non-tender without lymphadenopathy, masses or thyromegaly. CARDIOVASCULAR: Regular rate and rhythm without murmurs, gallops, or rubs. RESPIRATORY: Clear to auscultation. Breath sounds equal bilaterally. No wheezes, rales, or rhonchi. SKIN: warm, Dry, intact with no suspicious lesions or rash, good texture and turgor. NEURO: awake, alert, and oriented to person, place and time. There were no obvious focal neurologic abnormalities. EXTREMITIES: No joint tenderness, effusion, or edema noted. Course Course Level of Care: Express Care Visit Vital Signs Vital signs: Vital Signs Temperature 36.7 C 07/20/24 13:00 Pulse Rate 81 07/20/24 13:00 Respiratory Rate 18 07/20/24 13:00 Blood Pressure 137/83 07/20/24 13:00 Pulse Oximetry 99 07/20/24 13:00 Oxygen Delivery Room Air 07/20/24 13:00 Temperature 36.7 C 07/20/24 13:00 Pulse Rate 81 07/20/24 13:00 Respiratory Rate 18 07/20/24 13:00 Blood Pressure 137/83 07/20/24 13:00 Pulse Oximetry 99 07/20/24 13:00 Oxygen Delivery Room Air 07/20/24 13:00 Reviewed MDM - URI/Sore Throat MDM Narrative Medical decision making narrative: Please be advised this is a medical document. It is intended for [id number] communication. It is written in medical language and may contain unfamiliar abbreviations or verbiage. Medical documents are intended to carry relevant information, facts as evident, and the clinical opinion of the practitioner at the time of the encounter. This report may have been done utilizing a voice recognition system. Attempts have been made to correct errors. However, there may be uncorrected grammatical, spelling, and recognition errors present. The file time of this note does not necessarily represent the time of service. Differential Diagnosis Differential diagnosis: Likely upper respiratory infection, sinusitis and viral infection Discharge Plan Discharge Clinical Impression: Acute bacterial sinusitis, Acute bacterial conjunctivitis of left eye Patient Disposition: Home, Self-Care Condition: Stable Instructions: Antibiotic Form, Sinusitis (ED) Additional Instructions: take medications as prescribed. Continue taking Nidia daily. Take Tylenol every 6-8 hours as needed for pain. Place antibiotic eyedrops as prescribed. Wash hands before and after placing eyedrops. Follow-up with your doctor if symptoms are not improving. Patient Language: Romansh Prescriptions: New fluticasone propionate [Flonase Allergy Relief] 50 mcg/actuation spray,suspension 1 spray intranasal BID Qty: 16 0RF Rx Instructions: administer into each nostril amoxicillin-pot clavulanate 875-125 mg tablet 1 tablet PO Q12H 7 Days Qty: 14 0RF ofloxacin 0.3 % drops See Rx Instructions .ROUTE .COMPLEX Qty: 10 0RF Rx Instructions: put 1-2 drps into affected eye(s) every 2-4 h x 2 days, then 1-2 drps 4 times/day days 3-7 No Action fexofenadine [Nidia Hives] 180 mg tablet 180 mg PO DAILY cholecalciferol (vitamin D3) 50 mcg (2,000 unit) capsule 50 mcg PO DAILY valacyclovir 1 gram tablet 2,000 mg PO Q12H PRN (Reason: cold sores) Qty: 20 0RF Rx Instructions: take 2 tablets p.o. b.i.d. for 1 day with recurrence of cold sores as needed Follow-up/Referrals: Saran Suh MD [Primary Care Provider] - Time of Disposition: 13:08
== END 2024-07-20 13:10 | disposition home or self-care (01) ==
PROVIDERS: Emergency Provider Nurse Practitioner Family; PCP Family Medicine
DX: J01.90 Acute sinusitis, unspecified (principal); H10.32 Unspecified acute conjunctivitis, left eye; D83.9 Common variable immunodeficiency, unspecified; D80.1 Nonfamilial hypogammaglobulinemia
CPT/HCPCS: 99213; G0463